=== PATIENT | female | born 1950 | race African-American/Black ===

== ENCOUNTER 2018-03-11 06:41 | Day surgery (SDC) | payer OTHER ==
[~2018-03-11 06:41] MED LIST: NA CHLORIDE 0.9% 500 ML ONE
[2018-03-11] MEDS ORDERED: LIDOCAINE 1% 20 ML MDV ONE (07:29)
[2018-03-11] MEDS ORDERED: HEPA 1000U/500MLS 2,000 UNIT/1,000 ML BAG IV ONE (07:29)
[2018-03-11] MEDS ORDERED: HEPARIN 5000 UNIT/ML 1 ML VIAL ONE (07:42)
[2018-03-11] MEDS ORDERED: MIDAZOLAM HCL 2 MG/2 ML INJ ONE (07:42)
[2018-03-11] MEDS ORDERED: FENTANYL CITR 100 MCG/2 ML ONE (07:43)
[2018-03-11] MEDS ORDERED: NA CHLORIDE 0.9% 0 ML ONE (07:43)
[2018-03-11] MEDS ORDERED: ATROPINE SULF 1 MG/10 ML SYR IV ONE (07:43)
[2018-03-11] MEDS ORDERED: NITROGLYCERIN 100 MCG/ML SYR (for cath lab use only) IV ONE (07:43)
[2018-03-11] MEDS ORDERED: NICARDIPINE HCL 25 MG/10 ML IV ONE (07:43)
[2018-03-11] MEDS ORDERED: NITROGLYCERIN/D5W 25 MG/250 ML BTL IV ONE (07:43)
[2018-03-11 07:57] LABS: Protime INR 1.05
[2018-03-11 08:01] LABS: Absolute Lymphocytes (CBC) 2.2 K/uL (0.7-4.9); Absolute Monocytes 0.7 K/uL (0.1-1.3); Absolute Neutrophil 1.5 K/uL (1.8-8.0); Eosinophils % 2.3 % (0-4.4); Lymphocytes % 48.5 % (15.3-44.8); MCH 26.1 pg (27.0-35.0); MCV 80.2 fL (80-100); Monocytes % 14.3 % (3.3-12.3); RBC Red Blood Cell Count 5.73 M/uL (3.86-4.86)
[2018-03-11 08:31] LABS: Blood Morphology Comment NOT SEEN (NOT SEEN); Platelet Estimate ADEQ
--- NOTE | 2018-03-11 19:12 | OP ---
Surgeon: John Lynn MD Procedures: Left heart catheterization and coronary left ventricular angiography. Findings: The patient has perfectly normal coronary arteries. Her ejection fraction is hyperdynamic , more than 80% ejection fraction. Left ventricular end-diastolic pressure was elevated. There was an atrial kick up to 30 mmHg. End-diastolic pressure before the atrial kick was about 15 and our jazmin n is to give her Cardizem to treat hypertrophic cardiomyopathy without gradient. Procedure In Detail: The patient was brought to the cardiac laborer hoisting in a fasting state. She had gi tasia informed consent, prepared and draped in the usual sterile fashion. Right radial approach was us ed. She was sedated with Versed and fentanyl. Lidocaine 1% was used to anesthetize the skin over th e right radial artery. The artery was entered using a 21-gauge needle. A 0.021 inch diameter guidew michael was used to cannulate the artery and we used a modified Seldinger technique to place a 6-Sammarinese T erumo radial artery sheath and was flushed and she was given a radial cocktail consisting of nicardip ine, heparin, and nitroglycerin. We used a TIG catheter, 6-Sammarinese guide into place using fluoroscopy , and a eMagin Glidewire with a short radius J-tip and we were able to use this catheter to angiogram both coronary arteries and the left ventricle. At the end of the procedure, catheters were removed over a J-wire. The wire was removed. The sheath was flushed and removed and arteriotomy closed with a TR band. Complications: From the procedure, none. Estimated Blood Loss: 5 cc. Belt Lacer: Dorcas Covington. Final Diagnosis: Hypertrophic cardiomyopathy without a gradient causing the patient's chest pain. IBETH/MARIA LUISA Voice ID: [id number] Report ID: [id number]
== END 2018-03-11 10:18 | disposition home or self-care (01) ==
LOC: CCL 06:41
PROVIDERS: ATTEND Internal Medicine
DX: I42.2 Other hypertrophic cardiomyopathy (principal); I10 Essential (primary) hypertension; E11.9 Type 2 diabetes mellitus without complications; F17.210 Nicotine dependence, cigarettes, uncomplicated
CPT/HCPCS: 36415; 82962; 85025; 85610; 85730; 93458; C1893; J1644; J2250; J3010; J0583

== ENCOUNTER 2018-11-25 11:05 | Emergency (ER) | payer OTHER ==
--- NOTE | 2018-11-25 12:19 | RAD REPORT ---
EXAM DESCRIPTION: Sergey Jackson (2 Views)11/25/2018 12:10 pm CLINICAL HISTORY: Cough COMPARISON: 2017 FINDINGS: The lungs appear clear of acute infiltrate. The heart is normal size IMPRESSION: No acute abnormalities displayed
--- NOTE | 2018-11-25 12:51 | EKG ---
Test Date: 2018-11-25 Test Time: 11:18:42 Clinical Social Worker: NATI MEASUREMENT RESULTS: Intervals: Rate: 58 KS: 158 QRSD: 92 QT: 420 QTc: 412 Almond: P: 75 KS: 158 QRS: 57 T: 65 INTERPRETIVE STATEMENTS: Sinus bradycardia Incomplete right bundle branch block Septal infarct, age undetermined Abnormal ECG Compared to ECG 10/03/2016 19:37:02 Incomplete right bundle-branch block now present Myocardial infarct finding now present Sinus rhythm no longer present ST (T wave) deviation no longer present Possible ischemia no longer present Electronically Signed On 11-25-18 12:50:46 [employer] by John Lynn
[2018-11-25 13:03] LABS: Absolute Lymphocytes (CBC) 2.1 K/uL (0.7-4.9); Absolute Monocytes 0.8 K/uL (0.1-1.3); Absolute Neutrophil 2.3 K/uL (1.8-8.0); Eosinophils % 8.6 % (0-4.4); Hematocrit 43.1 % (36.0-45.0); Lymphocytes % 37.2 % (15.3-44.8); MPV 9.5 fL (7.6-11.3); Monocytes % 13.1 % (3.3-12.3)
[2018-11-25 13:30] LABS: BUN Blood Urea Nitrogen 15 mg/dL (7-18); Bicarbonate 27 mmol/L (21-32); Glucose Level 144 mg/dL (74-106); Sodium Level 141 mmol/L (136-145); Troponin (Emerg Dept Use Only) < 0.02 ng/mL (0.0-0.045)
[2018-11-25 14:07] LABS: Urine Blood TRACE (NEG); Urine Glucose TRACE (NEG); Urine Protein NEGATIVE (NEG); Urine Specific Gravity 1.015 (1.005-1.030); Urine pH 5.5 (5.0-7.0)
--- NOTE | 2018-11-25 15:10 | ER ---
Nurse's Notes [facility] Emergency Department Name: Dinora Brooks Age: 68 yrs Sex: Female : 1950 Arrival Date: 11/25/2018 Time: 11:07 Bed 8 Private MD: John Stuart Diagnosis: Chest pain, unspecified Presentation: 11/25 11:14 Presenting complaint: Patient states: mid-sternal chest pain that began 1 week ago. Pt aa5 reports SOB. Denies N/V. Transition of care: patient was not received from another setting of care. Onset of symptoms was November 2018. Risk Assessment: Do you want to hurt yourself or someone else? Patient reports no desire to harm self or others. Initial Sepsis Screen: Does the patient meet any 2 criteria? No. Patient's initial sepsis screen is negative. Does the patient have a suspected source of infection? No. Patient's initial sepsis screen is negative. Care prior to arrival: None. 11:14 Method Of Arrival: Ambulatory aa5 11:14 Acuity: JOSE 3 aa5 Triage Assessment: 15:11 General: Appears in no apparent distress. Behavior is calm, cooperative. iw Historical: - Allergies: 11:15 NKDA; aa5 - PMHx: 11:15 Diabetes - NIDDM; Hypertension; Lupus; aa5 - PSHx: 11:15 partial hysterectomy; aa5 - Immunization history:: Adult Immunizations up to date. - Social history:: Smoking status: Patient/guardian denies using tobacco. - Ebola Screening: : No symptoms or risks identified at this time. - Family history:: not pertinent. - Hospitalizations: : No recent hospitalization is reported. Screenin:56 Abuse screen: Denies threats or abuse. Denies injuries from another. Nutritional iw screening: No deficits noted. Tuberculosis screening: No symptoms or risk factors identified. Fall Risk None identified. Assessment: 13:56 Reassessment: Patient appears in no apparent distress at this time. Patient and/or iw family updated on plan of care and expected duration. Pain level reassessed. Patient is alert, oriented x 3, equal unlabored respirations, skin warm/dry/pink. Pain: Complains of pain in anterior aspect of left upper chest Pain does not radiate. Pain began gradually, Is intermittent, lasting a few minutes. Cardiovascular: Patient's skin is warm and dry. 14:20 Reassessment: Patient appears in no apparent distress at this time. Patient and/or sg family updated on plan of care and expected duration. Pain level reassessed. Patient is alert, oriented x 3, equal unlabored respirations, skin warm/dry/pink. requesting to eat, pt denies n/v at this time, pt given a turkey and cheese sandwich, tolerating PO at this time Patient denies pain at this time. 14:54 Reassessment: Patient appears in no apparent distress at this time. Patient and/or sg family updated on plan of care and expected duration. Pain level reassessed. Patient is alert, oriented x 3, equal unlabored respirations, skin warm/dry/pink. Patient denies pain at this time. Patient states feeling better. pt at nurses station requesting to speak with ERP and be discharged to home, awaiting dispo orders at this time, will continue to monitor. Vital Signs: 11:15 BP 155 / 71; Pulse 74; Resp 21 S; Temp 97.4(TE); Pulse Ox 97% on R/A; Weight 88.9 kg aa5 (R); Height 5 ft. 6 in. (167.64 cm) (R); Pain 0/10; 13:55 BP 161 / 67; Pulse 55; Resp 16 S; Pulse Ox 98% on R/A; Pain 4/10; iw 14:55 BP 142 / 70; Pulse 60; Resp 17; Pulse Ox 97% on R/A; Pain 0/10; sg 11:15 Body Mass Index 31.63 (88.90 kg, 167.64 cm) aa5 ED Course: 11:07 Patient arrived in ED. as 11:07 John Stuart MD is Private Physician. as 11:14 Arm band placed on. aa5 11:15 Triage completed. aa5 11:58 Aly Frias MD is Attending Physician. rn 12:00 Patient has correct armband on for positive identification. traffic monitor specialist on. iw 12:07 X-ray completed. Patient tolerated procedure well. Patient moved to radiology via jb2 wheelchair. Patient moved back from radiology. 12:09 Chest Pa And Lat (2 Views) XRAY In Process Unspecified. EDMS 12:12 Saloni Phillip, JOHNATHAN is Primary Nurse. iw 12:25 EKG done, by claim technician. reviewed by Aly Frias MD. sm3 15:09 John Lynn MD is Referral Physician. rn 15:10 No provider procedures requiring assistance completed. IV discontinued, intact, iw bleeding controlled, No redness/swelling at site. Pressure dressing applied. Patient maintains SpO2 saturation greater than 95% on room air. Administered Medications: No medications were administered Outcome: 15:10 Discharge ordered by . rn 15:10 Discharged to home ambulatory. iw 15:10 Condition: good 15:10 Discharge instructions given to patient, Instructed on discharge instructions, Demonstrated understanding of instructions, follow-up care. 15:15 Patient left the ED. iw Signatures: Dispatcher [employer] EDMS Diony Pisano, RN RN Cuong Lin Amelia as Williams, Irene RN RN Aly Frias MD MD rn Calderon, Audri, RN RN aa5 Christine Burch sm3
--- NOTE | 2018-11-25 15:10 | EDPHYS ---
Physician Documentation [facility] Name: Dinora Brooks Age: 68 yrs Sex: Female : 1950 Arrival Date: 11/25/2018 Time: 11:07 Bed 8 Private MD: John Stuart ED Physician Aly Frias HPI: 11/25 12:37 This 68 yrs old Black Female presents to ER via Ambulatory with complaints of Chest rn Pain. 12:43 The patient or guardian reports chest pain that is located primarily in the anterior rn aspect of left upper chest. Onset: 1 week(s) ago. The pain does not radiate. Associated signs and symptoms: Pertinent positives: None. Associated signs and symptoms: Pertinent negatives: shortness of breath, syncope. The chest pain is described as sharp. Duration: The patient or guardian reports multiple episodes, that are intermittent. Modifying factors: The symptoms are alleviated by nothing. the symptoms are aggravated by nothing. Severity of pain: At its worst the pain was mild in the emergency department the pain is unchanged. The patient has experienced similar episodes in the past. Reports left sided chest pain, intermittent, lasts for seconds, worse with movement and moving left arm, no radiation, no vomiting/diarrhea, reports has seen Dr. Lynn a few times for chest pain, told didn't need catheterization. Last seen 2 months ago. . Historical: - Allergies: 11:15 NKDA; aa5 - PMHx: 11:15 Diabetes - NIDDM; Hypertension; Lupus; aa5 - PSHx: 11:15 partial hysterectomy; aa5 - Immunization history:: Adult Immunizations up to date. - Social history:: Smoking status: Patient/guardian denies using tobacco. - Ebola Screening: : No symptoms or risks identified at this time. - Family history:: not pertinent. - Hospitalizations: : No recent hospitalization is reported. ROS: 12:43 Constitutional: Negative for fever, chills, and weight loss, Eyes: Negative for injury, rn pain, redness, and discharge, Neck: Negative for injury, pain, and swelling, Cardiovascular: Negative for palpitations, and edema, Respiratory: Negative for shortness of breath, cough, wheezing, and pleuritic chest pain, Abdomen/GI: Negative for abdominal pain, nausea, vomiting, diarrhea, and constipation, MS/Extremity: Negative for injury and deformity, Skin: Negative for injury, rash, and discoloration, Neuro: Negative for headache, weakness, numbness, tingling, and seizure. Exam: 12:43 Constitutional: This is a well developed, well nourished patient who is awake, alert, rn and in no acute distress. Head/Face: Normocephalic, atraumatic. Cardiovascular: Regular rate and rhythm with a normal S1 and S2. No gallops, murmurs, or rubs. No JVD. No pulse deficits. Respiratory: Lungs have equal breath sounds bilaterally, clear to auscultation. No increased work of breathing, no retractions or nasal flaring. Abdomen/GI: soft, non-tender Skin: Warm, dry with normal turgor. Normal color with no rashes, no lesions, and no evidence of cellulitis. MS/ Extremity: Pulses equal, no cyanosis. Neurovascular intact. Full, normal range of motion. Equal circumference. Neuro: Awake and alert, GCS 15, oriented to person, place, time, and situation. Cranial nerves II-XII grossly intact. Motor strength 5/5 in all extremities. Sensory grossly intact. Cerebellar exam normal. Normal gait. Vital Signs: 11:15 BP 155 / 71; Pulse 74; Resp 21 S; Temp 97.4(TE); Pulse Ox 97% on R/A; Weight 88.9 kg aa5 (R); Height 5 ft. 6 in. (167.64 cm) (R); Pain 0/10; 13:55 BP 161 / 67; Pulse 55; Resp 16 S; Pulse Ox 98% on R/A; Pain 4/10; iw 14:55 BP 142 / 70; Pulse 60; Resp 17; Pulse Ox 97% on R/A; Pain 0/10; sg 11:15 Body Mass Index 31.63 (88.90 kg, 167.64 cm) aa5 MDM: 11:58 Patient medically screened. rn 15:07 Differential diagnosis: abnormal EKG, acute myocardial infarction, acute pericarditis, rn anxiety, chest wall pain, costochondritis, esophagitis, gastritis, gastroesophageal reflux disease (GERD), pericarditis, pleurisy, pneumothorax. Data reviewed: vital signs, nurses notes, lab test result(s), EKG, radiologic studies, and as a result, I will discharge patient. Special discussion: Based on the patient's history, exam, and Dx evaluation, there is no indication for emergent intervention or inpatient Tx. It is understood by the patient/guardian that if the Sx's persist or worsen they need to return immediately for re-evaluation. I discussed with the patient/guardian in detail that at this point there is no indication for admission to the hospital. It is understood, however, that if the symptoms persist or worsen the patient needs to return immediately for re-evaluation. ED course: Pt eager to leave, she states does not believe this is her heart, no longer having pain, no ischemia on ECG, trop neg, cxr negative, may be sequelae of lupus, will dc home to f/u with cardiology, reports will call for appt upon discharge, return precautions given and understood. . 11/25 12:20 Order name: CBC with Diff; Complete Time: 13:10 rn 11/25 12:20 Order name: Basic Metabolic Panel; Complete Time: 13:34 rn 11/25 11:17 Order name: Chest Pa And Lat (2 Views) XRAY; Complete Time: 12:22 snw 11/25 11:19 Order name: EKG; Complete Time: 11:20 ss 11/25 12:20 Order name: Troponin (emerg Dept Use Only); Complete Time: 13:34 rn 11/25 13:57 Order name: Urine Dipstick--Ancillary (enter results); Complete Time: 14:17 eb 11/25 11:19 Order name: EKG - Nurse/Tech; Complete Time: 11:19 ss 11/25 12:20 Order name: IV Start; Complete Time: 13:02 rn Administered Medications: No medications were administered Disposition: 11/25/18 15:10 Discharged to Home. Impression: Chest pain, unspecified. - Condition is Stable. - Discharge Instructions: Nonspecific Chest Pain. - Medication Reconciliation Form, Thank You Letter, Antibiotic Education, Prescription Opioid Use form. - Follow up: John Lynn MD; When: As needed; Reason: Recheck today's complaints, Re-evaluation by your physician. - Problem is new. - Symptoms have improved. Signatures: Dispatcher [employer] EDSaloni Sandoval RN RN iw Aly Frias MD MD rn Calderon, Audri, RN RN aa5 Smirch, Aylin, RN RN ss Corrections: (The following items were deleted from the chart) 15:15 15:10 11/25/2018 15:10 Discharged to Home. Impression: Chest pain, unspecified. iw Condition is Stable. Forms are Medication Reconciliation Form, Thank You Letter, Antibiotic Education, Prescription Opioid Use. Follow up: John Lynn; When: As needed; Reason: Recheck today's complaints, Re-evaluation by your physician. Problem is new. Symptoms have improved. rn
== END 2018-11-25 15:15 | disposition home or self-care (01) ==
LOC: ER 11:05
DX: I45.10 Unspecified right bundle-branch block (principal); R07.9 Chest pain, unspecified; R94.31 Abnormal electrocardiogram [ECG] [EKG]
CPT/HCPCS: 36415; 71046; 80048; 81003; 84484; 85025; 93005; 99284

== ENCOUNTER 2020-01-09 09:18 | Emergency (ER) | payer OTHER ==
--- NOTE | 2020-01-09 10:27 | EDPHYS ---
Physician Documentation [facility] Name: Dinora Brooks Age: 69 yrs Sex: Female : 1950 Arrival Date: 01/09/2020 Time: 09:19 Bed 25 Private MD: ED Physician Jarrett South HPI: 01/09 10:15 This 69 yrs old Black Female presents to ER via Ambulatory with complaints of Chest pm1 Pain. 10:15 The patient or guardian reports flu symptoms. Onset: The symptoms/episode pm1 began/occurred 3 day(s) ago. Severity of symptoms: in the emergency department the symptoms are unchanged. Modifying factors: The symptoms are alleviated by nothing, the symptoms are aggravated by nothing. Associated signs and symptoms: Pertinent positives: Nonproductive cough, right and left anterior lower chest pain with coughing only. headache, subjective fever, body aches, and sore throat for 3 days. + nausea/ - diarrhea/ - vomiting. The patient has not recently seen a physician, the patient's primary care provider is Dr. Stuart. Historical: - Allergies: 09:41 NKDA; hb - Immunization history:: Adult Immunizations up to date. - Coronavirus screen:: The patient has NOT traveled to [place] in the past 14 days. - Ebola Screening: : Patient denies travel to an Ebola-affected area in the 21 days before illness onset. ROS: 10:15 Eyes: Negative for injury, pain, redness, and discharge. pm1 10:15 Neck: Negative for injury, pain, and swelling. 10:15 Back: Negative for injury and pain, : Negative for injury, bleeding, discharge, and swelling, MS/Extremity: Negative for injury and deformity, Skin: Negative for injury, rash, and discoloration, Neuro: Negative for weakness, numbness, tingling, and seizure, Positive headache 10:15 Constitutional: Positive for body aches, fever. 10:15 ENT: Positive for rhinorrhea, sore throat, Negative for ear pain. 10:15 Cardiovascular: Positive for chest pain, with cough, Negative for edema, palpitations. 10:15 Respiratory: Positive for cough, with no reported sputum, Negative for shortness of breath, sputum production, wheezing. 10:15 Abdomen/GI: Positive for nausea, Negative for abdominal pain, vomiting, diarrhea, constipation. Exam: 10:15 Constitutional: This is a well developed, well nourished patient who is awake, alert, pm1 and in no acute distress. Head/Face: Normocephalic, atraumatic. Eyes: Pupils equal round and reactive to light, extra-ocular motions intact. Lids and lashes normal. Conjunctiva and sclera are non-icteric and not injected. Cornea within normal limits. Periorbital areas with no swelling, redness, or edema. ENT: Nares patent. No nasal discharge, no septal abnormalities noted. Tympanic membranes are normal and external auditory canals are clear. Oropharynx with no redness, swelling, or masses, exudates, or evidence of obstruction, uvula midline. Mucous membranes moist. Neck: Trachea midline, no thyromegaly or masses palpated, and no cervical lymphadenopathy. Supple, full range of motion without nuchal rigidity, or vertebral point tenderness. No Meningismus. 10:15 Cardiovascular: Regular rate and rhythm with a normal S1 and S2. No gallops, murmurs, or rubs. Normal PMI, no JVD. No pulse deficits. Respiratory: Lungs have equal breath sounds bilaterally, clear to auscultation and percussion. No rales, rhonchi or wheezes noted. No increased work of breathing, no retractions or nasal flaring. Abdomen/GI: Soft, non-tender, with normal bowel sounds. No distension or tympany. No guarding or rebound. No evidence of tenderness throughout. Back: No spinal tenderness. No costovertebral tenderness. Full range of motion. Skin: Warm, dry with normal turgor. Normal color with no rashes, no lesions, and no evidence of cellulitis. MS/ Extremity: Pulses equal, no cyanosis. Neurovascular intact. Full, normal range of motion. 10:15 Chest/axilla: Inspection: normal, Palpation: tenderness, that is mild, of the anterior ribs below right and left breasts, that totally reproduces the patient's complaints. 10:15 Neuro: Orientation: is normal, Motor: is normal, moves all fours, Gait: is steady, at a normal pace, without difficulty. Vital Signs: 09:26 BP 189 / 89; Pulse 70; Resp 16; Temp 98.4; Pulse Ox 96% ; Weight 86.18 kg; Height 5 ft. hb 6 in. (167.64 cm); Pain 6/10; 09:26 Body Mass Index 30.67 (86.18 kg, 167.64 cm) hb MDM: 10:15 Patient medically screened. pm1 10:25 Data reviewed: vital signs. Data interpreted: Pulse oximetry: on room air is 96 %. pm1 Interpretation: normal. Counseling: I had a detailed discussion with the patient and/or guardian regarding: the historical points, exam findings, and any diagnostic results supporting the discharge/admit diagnosis, lab results, the need for outpatient follow up, to return to the emergency department if symptoms worsen or persist or if there are any questions or concerns that arise at home. 01/09 09:40 Order name: Flu; Complete Time: 10:12 hb 01/09 09:40 Order name: Strep; Complete Time: 10:12 hb 01/09 09:40 Order name: EKG; Complete Time: 09:41 hb 01/09 09:40 Order name: EKG - Nurse/Tech; Complete Time: 09:40 01/09 10:01 Order name: Throat Culture EDMS Administered Medications: No medications were administered Disposition: 12:59 Co-signature as Attending Physician, Jarrett South MD I agree with the assessment and kdr plan of care. Disposition: 01/09/20 10:26 Discharged to Home. Impression: Influenza due to identified novel influenza A virus. - Condition is Stable. - Discharge Instructions: Influenza, Adult. - Prescriptions for Guaifenesin AC 10- 100 mg/5 mL Oral Liquid - take 10 milliliter by ORAL route every 4 hours As needed; 240 milliliter. - Work release form, Medication Reconciliation Form, Thank You Letter, Antibiotic Education, Prescription Opioid Use form. - Follow up: Emergency Department; When: As needed; Reason: Worsening of condition. Follow up: Private Physician; When: 2 - 3 days; Reason: Recheck today's complaints, Continuance of care, Re-evaluation by your physician. - Problem is new. - Symptoms have improved. Signatures: Dispatcher [employer] EDMS Faiza Paige RN RN aj1 Jarrett South MD MD kdr Marinas, Patrick, LEAD ANDROID DEVELOPER LEAD ANDROID DEVELOPER pm1 Nena Stanton RN RN Corrections: (The following items were deleted from the chart) 10:41 10:26 01/09/2020 10:26 Discharged to Home. Impression: Influenza due to identified aj1 novel influenza A virus. Condition is Stable. Forms are Medication Reconciliation Form, Thank You Letter, Antibiotic Education, Prescription Opioid Use. Follow up: Emergency Department; When: As needed; Reason: Worsening of condition. Follow up: Private Physician; When: 2 - 3 days; Reason: Recheck today's complaints, Continuance of care, Re-evaluation by your physician. Problem is new. Symptoms have improved. pm1 11:10 10:15 Back: Negative for injury and pain, : Negative for injury, bleeding, discharge, pm1 and swelling, MS/Extremity: Negative for injury and deformity, Skin: Negative for injury, rash, and discoloration, Neuro: Negative for headache, weakness, numbness, tingling, and seizure, pm1
--- NOTE | 2020-01-09 10:27 | ER ---
Nurse's Notes [facility] Name: Dinora Brooks Age: 69 yrs Sex: Female : 1950 Arrival Date: 01/09/2020 Time: 09:19 Bed 25 Private MD: Diagnosis: Influenza due to identified novel influenza A virus Presentation: 01/09 09:25 Presenting complaint: Nonproductive cough, substernal chest pain, pain with cough, hb headache, subjective fever, body aches, nausea, and sore throat x 3 days. 09:25 Method Of Arrival: Ambulatory hb 09:25 Transition of care: patient was not received from another setting of care. Onset of hb symptoms was January 07, 2020. Risk Assessment: Do you want to hurt yourself or someone else? Patient reports no desire to harm self or others. Initial Sepsis Screen: Does the patient meet any 2 criteria? No. Patient's initial sepsis screen is negative. Does the patient have a suspected source of infection? No. Patient's initial sepsis screen is negative. Care prior to arrival: None. 09:25 Acuity: JOSE 3 hb Historical: - Allergies: 09:41 NKDA; hb - Immunization history:: Adult Immunizations up to date. - Coronavirus screen:: The patient has NOT traveled to [place] in the past 14 days. - Ebola Screening: : Patient denies travel to an Ebola-affected area in the 21 days before illness onset. Screenin:34 Abuse screen: Denies threats or abuse. Denies injuries from another. Nutritional aj1 screening: No deficits noted. Tuberculosis screening: No symptoms or risk factors identified. Fall Risk None identified. Assessment: 10:34 General: Appears in no apparent distress. comfortable, Behavior is calm, cooperative, aj1 appropriate for age. Pain: Complains of pain in chest Pain does not radiate. Quality of pain is described as aching, Aggravated by cough, deep breathing. Neuro: Level of Consciousness is awake, alert, obeys commands. Cardiovascular: Reports chest pain, Patient's skin is warm and dry. Respiratory: Reports cough that is hacking, persistent Airway is patent Respiratory effort is even, unlabored, Respiratory pattern is regular, symmetrical. GI: No signs and/or symptoms were reported involving the gastrointestinal system. : No signs and/or symptoms were reported regarding the genitourinary system. EENT:. Derm: No signs and/or symptoms reported regarding the dermatologic system. Skin is pink, warm \T\ dry. normal. Musculoskeletal: No signs and/or symptoms reported regarding the musculoskeletal system. Circulation, motion, and sensation intact. Vital Signs: 09: BP 189 / 89; Pulse 70; Resp 16; Temp 98.4; Pulse Ox 96% ; Weight 86.18 kg; Height 5 ft. hb 6 in. (167.64 cm); Pain 6/10; 09: Body Mass Index 30.67 (86.18 kg, 167.64 cm) hb ED Course: 09:19 Patient arrived in ED. as 09:30 Arm band placed on. EKG completed in triage. Results shown to MD. hb 09:39 Triage completed. hb 10:12 Hesham Trinh NP is PHCP. pm1 10:12 Jarrett South MD is Attending Physician. pm1 10:18 Faiza Paige RN is Primary Nurse. aj1 10:20 EKG done, by ED staff, reviewed by Jarrett South MD. tc 10:34 Patient has correct armband on for positive identification. aj1 10:34 No provider procedures requiring assistance completed. Patient maintains SpO2 aj1 saturation greater than 95% on room air. 10:40 Patient did not have IV access during this emergency room visit. aj1 Administered Medications: No medications were administered Outcome: : Discharge ordered by MD. pm1 10:40 Discharged to home ambulatory. aj1 10:40 Condition: good 10:40 Discharge instructions given to patient, Instructed on discharge instructions, follow up and referral plans. no drinking with medication, no driving heavy equipment, medication usage, Demonstrated understanding of instructions, follow-up care, medications, Prescriptions given X 1. 10:41 Patient left the ED. aj1 Signatures: Faiza Paige, RN RN aj1 Angelica Drake Tiffany, dynamometer tuner EKG Ttc Hesham Trinh NP DISH MACHINE OPERATOR pm1 Nena Stanton, RN RN hb
--- NOTE | 2020-01-09 11:30 | EKG ---
Test Date: 2020-01-09 Test Time: 09:28:09 Lockstitch Coat Joiner: MARY KATE MEASUREMENT RESULTS: Intervals: Rate: 68 RI: 146 QRSD: 94 QT: 394 QTc: 418 [place]: P: 76 RI: 146 QRS: 5 T: 70 INTERPRETIVE STATEMENTS: Normal sinus rhythm Incomplete right bundle branch block Nonspecific ST and T wave abnormality Abnormal ECG Compared to ECG 11/25/2018 11:18:42 ST (T wave) deviation now present Sinus bradycardia no longer present Myocardial infarct finding no longer present Electronically Signed On 01-09-20 11:30:22 ASSISTANT EXECUTIVE HOUSEKEEPER by Dieter Finch
== END 2020-01-09 10:41 | disposition home or self-care (01) ==
LOC: ER 09:18
DX: J09.X9 Influenza due to identified novel influenza A virus with other manifestations (principal)
CPT/HCPCS: 87070; 87081; 87804; 93005; 99284

== ENCOUNTER 2020-08-16 10:39 | Emergency (ER) | payer OTHER ==
--- OUTSIDE RECORDS SUMMARY | 2020-08-16 10:48 | XMS REPORT | Continuity of Care Document ---
:1950 Author Organization [employer] Care Team Providers Name Role Phone [email or web address] Unavailable Un available Problems Problem Status Onset Classification Date Comments Sourc e Date Reported Type 2 diabetes Active Diagnosis 05/21/2020 [facility] mellitus without of Jennifer complication, without long-term current use of insulin Screening for Active Problem 05/21/2020 [facility] osteoporosis of Jennifer Chest pain Active Problem 05/21/[address] of Jennifer Benign essential Active Diagnosis 05/21/2020 [facility] hypertension of Jennifer Discoid lupus Active Diagnosis 05/21/2020 [facility] erythematosus of Jennifer Gastroesophageal Active Problem 05/21/2020 [facility] reflux disease of [facility] u without esophagitis continuous churn buttermaker current Active Problem 05/21/2020 [facility] use of opiate of Jennifer analgesic Pain in joints of Active Problem 05/21/2020 [facility] right hand of Jennifer Osteopenia Active Diagnosis 05/21/[address] of Jennifer Pain in hand Active Problem 05/21/2020 [facility] Jennifer Paresthesia Active Problem 05/21/[address] [facility] of Jennifer Other detention Active Problem 05/21/2020 [facility] (current) drug of Ho u therapy Encounter for Active Problem 05/21/2020 [facility] long-term (current) of Jennifer use of other medications Muscle spasm Active Diagnosis 01/22/2020 [facility] Jennifer Vitamin D deficiency Active Diagnosis 05/21/2020 [facility] Jennifer Myalgia, unspecified Active Problem 05/21/2020 [facility] site of Jennifer Raised antibody Active Diagnosis 05/21/2020 [facility] titer of Jennifer Encounter for Active Problem 05/21/2020 [facility] therapeutic drug of Jennifer level monitoring Encntr long-term Active Problem 05/21/2020 [facility] NSAID use of Jennifer Osteoarthritis Active Diagnosis 05/21/2020 [facility] of Jennifer Encounter for Active Diagnosis 05/21/2020 [facility] immunization of Jennifer Medications Medication Details Route Status Patient Ordering Order Source Instructions Provider Date Tizanidine HCl 1 tablet Orally Active 2 MG Orally Mateo Rheu m as needed twice a day 019 Ctr of Jeninfer Ergocalciferol 1 capsule Orally Active 1.25 MG (47905 Vo [facility] [place]) Orally once 019 Ctr of a week Jennifer Naproxen 1 tablet Orally Active 500 MG Orally Mateo Rheum with food every 12 hrs 019 Ctr of or milk as Jennifer needed Tramadol HCl 1 tablet Orally Active 50 MG Orally Vo Rheum as needed every day (qd) 019 Ctr of Jennifer Gabapentin 1 capsule Orally Active 100 MG Orally Vo Rheum Twice a day as 019 Ctr of needed Jennifer Calcium + D 1 tablet Orally Active 315-200 MG-UNIT Vo Rhe um with meals Orally Twice a 017 Ctr of day Jennifer Calcium + D 2 tablet Orally Active 500-1000-40 Sandy Rheum with meals MG-UNT-MCG 017 Ctr of Orally Twice a Jennifer day Ramipril 1 tablet Orally Active 10 MG Orally Sandy Rhe[facility] Once a day Ctr of Jennifer Metformin HCl 1 tablet Orally Active 500 MG Orally Sandy Rhe um with meals Once a day Ctr of Jennifer Plavix not NA Active Sandy Rheum defined Ctr of Jennifer Cartia XT 1 capsule Orally Active 300 MG Orally Sandy Rheum Once a day Ctr of Jennifer Vitamin B-12 not NA Active Sandy Rheum defined Ctr of Jennifer Aleve 1 tablet Orally Active 220 MG Orally Vo Rheum as needed every 12 hrs Ctr of Jennifer Aspirin 1 tablet Orally Active 81 MG Orally Sandy [facility] Once a day Ctr of Jennifer GlipiZIDE XL 1 tablet Orally Active 5 MG Orally Sandy [facility] Once a day C[facility] of Jennifer Nexium 1 capsule Orally Active 10 MG Orally Sandy Rhe[facility] Once a day C[facility] of Jennifer Januvia 1 tablet Orally Active 100 MG Orally Sandy Rhe[facility] Once a day Ctr of Jennifer Tresiba FlexTouch not NA Active Sandy Rhe[facility] defined Ctr of Jennifer Allergies, Adverse Reactions, Alerts Substance Category Reaction Severity Reaction Status Date Comments S ource type Reported Hydroxychloroquin Adverse bad Adverse Active Rheum e Sulfate Reaction dreams Reaction 0 Ctr of Jennifer Immunizations No Data Provided for This Section Results No Data Provided for This Section Pathology Reports No Data Provided for This Section Diagnostic Reports No Data Provided for This Section Consultation Notes No Data Provided for This Section Discharge Summaries No Data Provided for This Section History and Physicals No Data Provided for This Section Vital Signs Vital Sign Value Date Comments Source Weight 185 05/20/2020 [facility] Height 56 05/20/2020 [facility] Heart Rate 64 05/20/2020 [facility] Diastolic (mm Hg) 90 05/20/2020 [facility] Jennifer Systolic (mm Hg) 174 05/20/2020 [facility] o f Jennifer Weight 186 01/20/2020 [facility] Height 56 01/20/2020 [facility] Heart Rate 56 01/20/2020 [facility] Diastolic (mm Hg) 83 01/20/2020 [facility] Jennifer Systolic (mm Hg) 147 01/20/2020 [facility] o f Jennifer Weight 185 10/02/2019 [facility] Height 56 10/02/2019 [facility] Heart Rate 75 10/02/2019 [facility] Diastolic (mm Hg) 73 10/02/2019 [facility] Jennifer Systolic (mm Hg) 153 10/02/2019 [facility] o f Jennifer Weight 192 06/03/2019 [facility] Height 56 06/03/2019 [facility] Heart Rate 58 06/03/2019 [facility] Diastolic (mm Hg) 89 06/03/2019 [facility] Jennifer Systolic (mm Hg) 187 06/03/2019 [facility] o f Jennifer Encounters No Data Provided for This Section Procedures No Data Provided for This Section Assessment and Plan No Data Provided for This Section Plan of Care No Data Provided for This Section Social History No Data Provided for This Section Family History No Data Provided for This Section Advance Directives No Data Provided for This Section Functional Status No Data Provided for This Section
--- OUTSIDE RECORDS SUMMARY | 2020-08-16 10:49 | XMS REPORT ---
:1950 Author Organization [employer] Care Team Providers Name Role Phone Fifi Delgado Provider Role Unavailable Allergies, Adverse Reactions, Alerts Substance Reaction Event Type Hydroxychloroquine Sulfate bad dreams Drug Allergy Problems Problem Type Condition Code Onset Dates Condition Statu s Assessment Osteoarthritis M19.90 Active Assessment Encounter for immunization Z23 A ctive Assessment Benign essential hypertension I10 Active Assessment Type 2 diabetes mellitus without E11.9 Active complication, without long-term current use of insulin Problem Encounter for long-term (current) Z79.899 Active use of other medications Assessment Osteopenia M85.80 Active Problem Other rn long term care (current) drug Z79.899 Active therapy Assessment Vitamin D deficiency E55.9 Active Problem Pain in joints of right hand M25.541 Active Problem Osteopenia M85.80 Active Problem terminologist current use of opiate Z79.891 Active analgesic Problem Osteoarthritis M19.90 Active Problem Encntr long-term NSAID use Z79.1 A ctive Assessment Discoid lupus erythematosus L93.0 Active Problem Encounter for immunization Z23 A ctive Assessment Raised antibody titer R76.0 Active Problem Vitamin D deficiency E55.9 Active Problem Myalgia, unspecified site M79.10 Ac tive Problem Encounter for therapeutic drug Z51.81 Active level monitoring Problem Raised antibody titer R76.0 Active Problem Discoid lupus erythematosus L93.0 Active Problem Chest pain R07.9 Active Problem Benign essential hypertension I10 Active Problem Gastroesophageal reflux disease K21.9 Active without esophagitis Problem Paresthesia R20.2 Active Problem Pain in hand M79.643 Active Problem Screening for osteoporosis Z13.820 A ctive Problem Type 2 diabetes mellitus without E11.9 Active complication, without long-term current use of insulin Medications Medication Code Code Instructions Start End Status Dosage System Date Date GlipiZIDE XL [facility] 64428616677 5 MG Orally Active 1 t ablet Once a day Plavix [facility] [address]-41 Active not defined Calcium + D [facility] 70398860528 500-1000-40 Sep 03, Active 2 ta blet MG-UNT-MCG 2016 with meals Orally Twice a day Vitamin B-12 [facility] 25224-16736 Active not defined Ramipril [facility] 54677007968 10 MG Orally Active 1 tabl et Once a day Aspirin [facility] 69829259243 81 MG Orally Active 1 table t Once a day Metformin HCl [facility] 52568472145 500 MG Orally Active 1 tablet Once a day with meals Januvia [facility] 11430512203 100 MG Orally Active 1 tabl et Once a day Nexium [facility] 58651256253 10 MG Orally Active 1 capsu le Once a day Tresiba [facility] [address]-74 Active not FlexTouch defined Cartia XT [facility] 03521330727 300 MG Orally Active 1 ca psule Once a day Vital Signs Date/Time: May 20, 2020 BMI 41.47 Index Weight 185 lbs Height 56 in Cardiac Monitoring Heart Rate 64 /min Blood Pressure Diastolic 90 mm Hg Blood Pressure Systolic 174 mm Hg Results No Known Results Summary Purpose [employer] Submission
--- NOTE | 2020-08-16 11:19 | ER ---
Nurse's Notes [facility] Name: Dinora Brooks Age: 70 yrs Sex: Female : 1950 Arrival Date: 08/16/2020 Time: 10:42 Bed 18 Private MD: Diagnosis: Candidiasis Presentation: 08/16 10:47 Chief complaint: Patient states: rash under bilateral breast x 1 week, painful and jl7 itchy. Coronavirus screen: Client denies travel out of the [place] in the last 14 days. At this time, the client does not indicate any symptoms associated with coronavirus-19. Ebola Screen: No symptoms or risks identified at this time. Initial Sepsis Screen: Does the patient meet any 2 criteria? No. Patient's initial sepsis screen is negative. Does the patient have a suspected source of infection? No. Patient's initial sepsis screen is negative. Risk Assessment: Do you want to hurt yourself or someone else? Patient reports no desire to harm self or others. Onset of symptoms was August 09, 2020. Care prior to arrival: None. 10:47 Method Of Arrival: Ambulatory jl7 10:47 Acuity: JOSE 4 jl7 Triage Assessment: 10:49 General: Appears in no apparent distress. uncomfortable, Behavior is calm, cooperative, jl7 appropriate for age. Pain: Complains of pain in chest Pain currently is 6 out of 10 on a pain scale. Historical: - Allergies: 10:49 NKDA; jl7 - Home Meds: 10:49 Tresiba FlexTouch U-100 100 unit/mL (3 mL) subcutaneous inpn [Active]; Verapamil Oral jl7 [Active]; - PMHx: 10:49 Diabetes - NIDDM; Hypertension; Lupus; jl7 - Immunization history:: Adult Immunizations up to date. - Social history:: Smoking status: Patient/guardian denies using tobacco, the patient reports quitting approximately 3 years ago. Screenin:52 Abuse screen: Denies threats or abuse. Denies injuries from another. Nutritional bp screening: No deficits noted. Tuberculosis screening: No symptoms or risk factors identified. Fall Risk None identified. Assessment: 10:52 General: SEE TRIAGE NOTE. bp 11:24 Reassessment: PT D/C HOME AMBULATORY, DX WITH CANDIDIASIS. bp Vital Signs: 10:47 BP 196 / 80; Pulse 69; Resp 17; Temp 97.6; Pulse Ox 100% ; Weight 86.18 kg; Pain 6/10; jl7 11:24 BP 166 / 75; Pulse 75; Resp 17; Temp 97.8; Pulse Ox 100% ; bp ED Course: 10:42 Patient arrived in ED. as 10:48 Elise Mendoza FNP-C is [facility]. kb 10:48 Sal Olson MD is Attending Physician. kb 10:48 Triage completed. jl7 10:49 Arm band placed on right wrist. jl7 10:52 Matt iWnters, RN is Primary Nurse. bp 10:52 Patient has correct armband on for positive identification. Bed in low position. Call bp light in reach. Side rails up X2. 11:24 No provider procedures requiring assistance completed. Patient did not have IV access bp during this emergency room visit. Administered Medications: No medications were administered Outcome: 11:19 Discharge ordered by MD. kb 11:24 Discharged to home ambulatory. bp 11:24 Condition: stable 11:24 Discharge instructions given to patient, Instructed on discharge instructions, follow up and referral plans. medication usage, Demonstrated understanding of instructions, follow-up care, medications, Prescriptions given X 1. 11:26 Patient left the ED. bp Signatures: Elise Mendoza FNP-C FNP-Ckb Martinez, Amelia as Leal, Jahala, RN RN jlMatt Spear, RN RN bp
--- NOTE | 2020-08-16 11:20 | EDPHYS ---
Physician Documentation [facility] Name: Dinora Brooks Age: 70 yrs Sex: Female : 1950 Arrival Date: 08/16/2020 Time: 10:42 Bed 18 Private MD: GABRIEL Physician Sal Olson HPI: 08/16 11:49 This 70 yrs old Black Female presents to ER via Ambulatory with complaints of Breast kb Problem. 11:49 The patient's rash thought to be caused by an unknown cause. The rash is located on the kb left breast and right breast. The rash can be described as erythematous, macular, papular. Onset: The symptoms/episode began/occurred 1 week(s) ago. Associated signs and symptoms: Pertinent positives: itching. Severity of symptoms: At their worst the symptoms were moderate in the emergency department the symptoms are unchanged. The patient has not experienced similar symptoms in the past. The patient has not recently seen a physician. Pt reports rash beneath breasts that started a week ago. States it is getting worse and she can't get any relief from the itching. States the only thing that decreases the symptoms is putting tissue under the breasts to keep the skin from touching. Historical: - Allergies: 10:49 NKDA; jl7 - Home Meds: 10:49 Tresiba FlexTouch U-100 100 unit/mL (3 mL) subcutaneous inpn [Active]; Verapamil Oral jl7 [Active]; - PMHx: 10:49 Diabetes - NIDDM; Hypertension; Lupus; jl7 - Immunization history:: Adult Immunizations up to date. - Social history:: Smoking status: Patient/guardian denies using tobacco, the patient reports quitting approximately 3 years ago. ROS: 11:48 Constitutional: Negative for fever, chills, and weight loss, Cardiovascular: Negative kb for chest pain, palpitations, and edema, Respiratory: Negative for shortness of breath, cough, wheezing, and pleuritic chest pain, Abdomen/GI: Negative for abdominal pain, nausea, vomiting, diarrhea, and constipation, Back: Negative for injury and pain, MS/Extremity: Negative for injury and deformity, Neuro: Negative for headache, weakness, numbness, tingling, and seizure. 11:48 Skin: Positive for rash, of the right breast and left breast. Exam: 11:48 Constitutional: This is a well developed, well nourished patient who is awake, alert, kb and in no acute distress. Head/Face: Normocephalic, atraumatic. Chest/axilla: Normal chest wall appearance and motion. Nontender with no deformity. No lesions are appreciated. Cardiovascular: Regular rate and rhythm with a normal S1 and S2. No gallops, murmurs, or rubs. Normal PMI, no JVD. No pulse deficits. Respiratory: Lungs have equal breath sounds bilaterally, clear to auscultation and percussion. No rales, rhonchi or wheezes noted. No increased work of breathing, no retractions or nasal flaring. Abdomen/GI: Soft, non-tender, with normal bowel sounds. No distension or tympany. No guarding or rebound. No evidence of tenderness throughout. MS/ Extremity: Pulses equal, no cyanosis. Neurovascular intact. Full, normal range of motion. Neuro: Awake and alert, GCS 15, oriented to person, place, time, and situation. Cranial nerves II-XII grossly intact. Motor strength 5/5 in all extremities. Sensory grossly intact. Cerebellar exam normal. Normal gait. 11:48 Skin: rash a moderate rash is noted, consistent with yeast, on the left breast and right breast. Vital Signs: 10:47 BP 196 / 80; Pulse 69; Resp 17; Temp 97.6; Pulse Ox 100% ; Weight 86.18 kg; Pain 6/10; jl7 11:24 BP 166 / 75; Pulse 75; Resp 17; Temp 97.8; Pulse Ox 100% ; bp MDM: 10:51 Patient medically screened. kb 11:48 Data reviewed: vital signs, nurses notes. Data interpreted: Pulse oximetry: on room air kb is 100 %. Interpretation: normal. Counseling: I had a detailed discussion with the patient and/or guardian regarding: the historical points, exam findings, and any diagnostic results supporting the discharge/admit diagnosis, the need for outpatient follow up, a family practitioner, to return to the emergency department if symptoms worsen or persist or if there are any questions or concerns that arise at home. Administered Medications: No medications were administered Disposition: 08/16/20 11:19 Discharged to Home. Impression: Candidiasis. - Condition is Stable. - Discharge Instructions: Skin Yeast Infection. - Prescriptions for Nystatin- Triamcinolone 100,000-0.1 unit/g-% Topical Cream - apply 1 application by TOPICAL route 2 times per day; 1 tube. - Work release form, Medication Reconciliation Form, Thank You Letter, Antibiotic Education, Prescription Opioid Use form. - Follow up: Emergency Department; When: As needed; Reason: Worsening of condition. Follow up: Private Physician; When: 2 - 3 days; Reason: Recheck today's complaints, Continuance of care, Re-evaluation by your physician. Addendum: 08/17/2020 13:47 Co-signature as Attending Physician, Sal Olson MD I agree with the assessment and c albarran plan of care. Signatures: Elise Mendoza, SILVIO-C JUVENILE COURT JUDGE-Sal Castaneda MD MD cha Leal, Jahala, RN RN jl7 Matt Winters RN RN bp Corrections: (The following items were deleted from the chart) 08/16 11:26 11:19 08/16/2020 11:19 Discharged to Home. Impression: Candidiasis. Condition is bp Stable. Forms are Medication Reconciliation Form, Thank You Letter, Antibiotic Education, Prescription Opioid Use. Follow up: Emergency Department; When: As needed; Reason: Worsening of condition. Follow up: Private Physician; When: 2 - 3 days; Reason: Recheck today's complaints, Continuance of care, Re-evaluation by your physician. kb
[2020-08-16 11:36] VITALS: O2SAT 100
[2020-08-16 11:37] VITALS: BP 166/75; TEMP 97.8
== END 2020-08-16 11:26 | disposition home or self-care (01) ==
LOC: ER 10:39
DX: B37.9 Candidiasis, unspecified (principal); I10 Essential (primary) hypertension; E11.9 Type 2 diabetes mellitus without complications; Z79.4 Long term (current) use of insulin
CPT/HCPCS: 99282

== ENCOUNTER 2021-02-23 10:32 | Emergency (ER) | payer OTHER ==
--- NOTE | 2021-02-23 13:50 | RAD REPORT ---
EXAM DESCRIPTION: Sergey Single View02/23/2021 1:44 pm CLINICAL HISTORY: Cough COMPARISON: 2018 FINDINGS: The lungs appear clear of acute infiltrate. The heart is mildly enlarged IMPRESSION: No acute abnormalities displayed
[2021-02-23 14:44] LABS: SARS-COV-2 RT PCR NEGATIVE (NEGATIVE)
--- NOTE | 2021-02-23 14:58 | EDPHYS ---
Physician Documentation [facility] Name: Dinora Brooks Age: 70 yrs Sex: Female : 1950 Arrival Date: 02/23/2021 Time: 10:48 Bed 28 Private MD: John Stuart ED Physician Aly Frias HPI: 02/23 13:11 This 70 yrs old Black Female presents to ER via Ambulatory with complaints of Cough, jmm Chest Pressure. 13:11 The patient or guardian reports cough. Onset: The symptoms/episode began/occurred jmm gradually, 2 day(s) ago. Modifying factors: The symptoms are alleviated by nothing, the symptoms are aggravated by nothing. Associated signs and symptoms: Pertinent positives: sinus pressure. This is a 70 year old female with a history of dm, htn, lupus that presents to the ED with complaints of cough, chest congestion, sinus pressure beginning approx 2 days ago. Patient denies chest pain or shortness of breath. Denies fever. Denies known infectious exposure. . Historical: - Allergies: 11:26 NKDA; ca1 - PMHx: 11:26 Diabetes - NIDDM; Hypertension; Lupus; ca1 - PSHx: 11:26 Hysterectomy; ca1 - Immunization history:: Client reports receiving the 1st dose of the Covid vaccine, Pneumococcal vaccine is not up to date, Flu vaccine is up to date. - Social history:: Smoking status: Patient/guardian denies using tobacco, the patient reports quitting approximately 4 years ago. ROS: 13:11 Constitutional: Negative for fever, chills, and weight loss, Cardiovascular: Negative jmm for chest pain, palpitations, and edema. 13:11 ENT: Positive for sinus congestion, sinus pain. 13:11 Respiratory: Positive for cough. 13:11 All other systems are negative. Exam: 13:11 Constitutional: This is a well developed, well nourished patient who is awake, alert, jmm and in no acute distress. Head/Face: atraumatic. Eyes: EOMI, no conjunctival erythema appreciated ENT: Moist Mucus Membranes Neck: Trachea midline, Supple Chest/axilla: Normal chest wall appearance and motion. Cardiovascular: Regular rate and rhythm. No edema appreciated Respiratory: Normal respirations, no respiratory distress appreciated Abdomen/GI: Non distended, soft Back: Normal ROM Skin: General appearance color normal MS/ Extremity: Moves all extremities, no obvious deformities appreciated, no edema noted to the lower extremities Neuro: Awake and alert, normal gait Psych: Behavior is normal, Mood is normal, Patient is cooperative and pleasant Vital Signs: 11:23 BP 151 / 84; Pulse 58; Resp 18 S; Temp 97.6(TE); Pulse Ox 99% on R/A; Weight 87.54 kg ca1 (R); Height 5 ft. 6 in. (167.64 cm) (R); Pain 6/10; 11:23 Body Mass Index 31.15 (87.54 kg, 167.64 cm) ca1 MDM: 13:22 Patient medically screened. [facility] 14:57 Data reviewed: vital signs, nurses notes. Counseling: I had a detailed discussion with [facility] the patient and/or guardian regarding: the historical points, exam findings, and any diagnostic results supporting the discharge/admit diagnosis, lab results, radiology results, the need for outpatient follow up, to return to the emergency department if symptoms worsen or persist or if there are any questions or concerns that arise at home. ED course: Patient is alert and non toxic in appearance in the ED. No signs of resp distress. Patient advised to follow up with pcp and otherwise given strict return precautions. patient understood and agrees with the plan of care. . 02/23 13:22 Order name: Chest Single View XRAY; Complete Time: 13:53 [facility] 02/23 14:44 Order name: COVID-19/FLU A+B; Complete Time: 14:48 EDMS Administered Medications: No medications were administered Disposition: 17:34 Co-signature as Attending Physician, Aly Frias MD. rn Disposition: 02/23/21 14:58 Discharged to Home. Impression: Acute upper respiratory infection, unspecified. - Condition is Stable. - Discharge Instructions: Upper Respiratory Infection, Adult. - Prescriptions for Albuterol Sulfate 90 mcg/actuation - inhale 1-2 puff by INHALATION route every 4-6 hours; 1 Inhaler. - Medication Reconciliation Form, Thank You Letter, Antibiotic Education, Prescription Opioid Use, Work release form form. - Follow up: John Stuart MD; When: 2 - 3 days; Reason: Recheck today's complaints, Continuance of care, Re-evaluation by your physician. Signatures: Dispatcher [employer] EDMS Jude Wall PA PA jmm Williams, Irene, RN RN iw Aly Frias MD MD rn Acob, JOHNATHAN Alarcon RN ca1 Corrections: (The following items were deleted from the chart) 14:01 13:22 CORONAVIRUS+ ordered. [facility] EDAL 15:09 14:58 02/23/2021 14:58 Discharged to Home. Impression: Acute upper respiratory iw infection, unspecified. Condition is Stable. Forms are Medication Reconciliation Form, Thank You Letter, Antibiotic Education, Prescription Opioid Use. Follow up: John Stuart; When: 2 - 3 days; Reason: Recheck today's complaints, Continuance of care, Re-evaluation by your physician. xuan
--- NOTE | 2021-02-23 14:58 | ER ---
Nurse's Notes [facility] Name: Dinora Brooks Age: 70 yrs Sex: Female : 1950 Arrival Date: 02/23/2021 Time: 10:48 Bed 28 Private MD: John Stuart Diagnosis: Acute upper respiratory infection, unspecified Presentation: 02/23 11:23 Chief complaint: Patient states: last 3 days, cough, congestion and headache. Every ca1 time I cough, my ribs hurt all across under the breast. Denies fever. Coronavirus screen: Client denies travel out of the [place] in the last 14 days. congestion, cough unrelated to allergies, headache, Client presents with at least one sign or symptom that may indicate coronavirus-19. Standard/surgical mask placed on the client. Provider contacted for isolation considerations. Ebola Screen: Patient negative for fever greater than or equal to 101.5 degrees Fahrenheit, and additional compatible Ebola Virus Disease symptoms Patient denies exposure to infectious person. Patient denies travel to an Ebola-affected area in the 21 days before illness onset. No symptoms or risks identified at this time. Initial Sepsis Screen: Does the patient meet any 2 criteria? No. Patient's initial sepsis screen is negative. Does the patient have a suspected source of infection? No. Patient's initial sepsis screen is negative. Risk Assessment: Do you want to hurt yourself or someone else? Patient reports no desire to harm self or others. Onset of symptoms was February 23, 2021. 11:23 Method Of Arrival: Ambulatory ca1 11:23 Acuity: JOSE 3 ca1 Historical: - Allergies: 11:26 NKDA; ca1 - PMHx: 11:26 Diabetes - NIDDM; Hypertension; Lupus; ca1 - PSHx: 11:26 Hysterectomy; ca1 - Immunization history:: Client reports receiving the 1st dose of the Covid vaccine, Pneumococcal vaccine is not up to date, Flu vaccine is up to date. - Social history:: Smoking status: Patient/guardian denies using tobacco, the patient reports quitting approximately 4 years ago. Screenin:33 Abuse screen: Denies threats or abuse. Denies injuries from another. Nutritional iw screening: No deficits noted. Tuberculosis screening: No symptoms or risk factors identified. Fall Risk None identified. Assessment: 13:32 General: Appears in no apparent distress. Behavior is calm, cooperative. Pain: iw Complains of pain in diaphragm, mid-sternal area, right breast and left breast Pain does not radiate. Pain: Pain began 2-3 days ago. Neuro: Level of Consciousness is awake, alert, obeys commands, Oriented to person, place, time, situation, Moves all extremities. Cardiovascular: Patient's skin is warm and dry. Respiratory: Reports cough that is productive, Respiratory effort is even, unlabored, Respiratory pattern is regular, symmetrical. Derm: Skin is pink, warm \T\ dry. normal. Musculoskeletal: Range of motion: intact in all extremities. Vital Signs: 11:23 BP 151 / 84; Pulse 58; Resp 18 S; Temp 97.6(TE); Pulse Ox 99% on R/A; Weight 87.54 kg ca1 (R); Height 5 ft. 6 in. (167.64 cm) (R); Pain 6/10; 11:23 Body Mass Index 31.15 (87.54 kg, 167.64 cm) ca1 ED Course: 10:48 Patient arrived in ED. am2 10:48 John Stuart MD is Private Physician. am2 11:25 Triage completed. ca1 11:26 Arm band placed on right wrist. ca1 13:08 Jude Wall PA is PHCP. jmm 13:08 Aly Frias MD is Attending Physician. jmm 13:14 Saloni Phillip, JOHNATHAN is Primary Nurse. iw 13:35 Flu Sent. mt 13:43 Chest Single View XRAY In Process Unspecified. EDMS 14:57 John Stuart MD is Referral Physician. m 15:09 Pulse ox on. iw 15:09 Patient has correct armband on for positive identification. iw 15:09 No provider procedures requiring assistance completed. Patient did not have IV access iw during this emergency room visit. Patient maintains SpO2 saturation greater than 95% on room air. Administered Medications: No medications were administered Outcome: 14:58 Discharge ordered by . m 15:09 Discharged to home ambulatory. iw 15:09 Condition: good 15:09 Discharge instructions given to patient, Instructed on discharge instructions, follow up and referral plans. medication usage, Demonstrated understanding of instructions, follow-up care, medications, Prescriptions given X 1. 15:09 Patient left the ED. iw Signatures: Dispatcher [employer] EDMS Jude Wall PA PA jmm Williams, Irene, RN RN Milvia Manning Moriah ar Agnes Rojas RN RN ca1 Corrections: (The following items were deleted from the chart) 14: 13:35 CORONAVIRUS+ drawn and sent. ar GABRIELOH
[2021-02-23 16:15] VITALS: BP 151/84; TEMP 97.6; O2SAT 99
== END 2021-02-23 15:09 | disposition home or self-care (01) ==
LOC: ER 10:32
DX: J06.9 Acute upper respiratory infection, unspecified (principal); I10 Essential (primary) hypertension; Z20.822 Contact with and (suspected) exposure to COVID-19; Z87.891 Personal history of nicotine dependence
CPT/HCPCS: 0240U; 71045; 99284

== ENCOUNTER 2022-02-27 15:53 | Inpatient (IN) | payer OTHER ==
--- OUTSIDE RECORDS SUMMARY | 2022-02-27 15:57 | XMS REPORT | Continuity of Care Document ---
:1950 Author Organization [facility] t Address [address] [place] [address] Dr. Almanza [address] [place] [id number] Care Team Providers Name Role Phone Ajibade_O_AH Attending Clinician Unavailable Ige-Odunuga_J_AH Attending Clinician Unavailable Ajibade_O_AH Admitting Clinician Unavailable Ige-Odunuga_J_AH Admitting Clinician Unavailable Payers Payer Name Policy Type Policy Number Effective Date Expiration Date S man[place] [facility] [place] [facility] [id number] 2019 [employer] 00:00:00 (MEDICARE REPLACEMENT/ADVANT AGE - HMO) Problems This patient has no known problems. Allergies, Adverse Reactions, Alerts This patient has no known allergies or adverse reactions. Medications This patient has no known medications. Procedures This patient has no known procedures. Encounters Start End Encounter Admission Attending Care Care Encounter Source Date/Time Date/Time Type Type Clinicians Facility Department ID 2020-07-15 2020-07-15 Outpatient Ajibade_O_A VFP VFP [id number] [facility] 04:39:00 04:39:00 H [id number] Family Practic e 2020-07-15 2020-07-15 Outpatient Ajibade_O_A VFP VFP [id number] [facility] 04:39:00 04:39:00 H [id number] Family Practic e 2020-07-15 2020-07-15 Outpatient Ajibade_O_A VFP VFP [phone] [facility] 04:39:00 04:39:00 H [id number] Family Practic e 2020-02-16 2020-02-16 Outpatient Ige-Odunuga VFP VFP [phone] [facility] 06:14:00 06:14:00 _J_AH [id number] Family Practic e Results This patient has no known results.
--- NOTE | 2022-02-27 17:15 | RAD REPORT ---
EXAM DESCRIPTION: RAD - Chest Single View - 02/27/2022 5:08 pm CLINICAL HISTORY: Chest pain;SOB Chest pain. COMPARISON: Chest Pa And Lat (2 Views) dated 12/06/2021; Chest Single View dated 02/23/2021; Chest Pa A nd Lat (2 Views) dated 11/25/2018; Chest Pa And Lat (2 Views) dated 09/26/2017 FINDINGS: Portable technique limits examination quality. Mild interstitial pulmonary edema. The heart is mildly to moderately enlarged. No displaced fractures . IMPRESSION: Mild CHF.
[2022-02-27 17:29] LABS: Absolute Lymphocytes (CBC) 1.6 K/uL (0.7-4.9); Hematocrit 41.4 % (36.0-45.0); MPV 9.1 fL (7.6-11.3); RBC Red Blood Cell Count 5.19 M/uL (3.86-4.86)
[2022-02-27] MEDS ORDERED: FUROSEMIDE 40 MG/4 ML VIAL ONE (17:36)
[2022-02-27 17:38] LABS: Albumin 3.5 g/dL (3.4-5.0); Bilirubin Direct 0.1 mg/dL (0-0.2); Bilirubin Total 0.4 mg/dL (0.2-1.0); Magnesium 1.8 mg/dL (1.8-2.4); Potassium 3.9 mmol/L (3.5-5.1); Troponin High Sensitivity 25.6 pg/mL (<58.9)
[2022-02-27 17:45] LABS: Protime INR 1.1
--- NOTE | 2022-02-27 18:41 | ER ---
Nurse's Notes [facility] Name: Dinora Brooks Age: 71 yrs Sex: Female : 1950 Arrival Date: 02/27/2022 Time: 15:57 Bed 8 Private MD: John Stuart Diagnosis: Acute systolic (congestive) heart failure-new onset;Dyspnea Presentation: 02/27 16:14 Chief complaint: Patient states: "I have been having chest pain, fatigue and shortness jd3 of breath. I have been told I have hypertrophic cardiomyopathy.". Coronavirus screen: At this time, the client does not indicate any symptoms associated with coronavirus-19. Ebola Screen: No symptoms or risks identified at this time. Initial Sepsis Screen: Does the patient meet any 2 criteria? No. Patient's initial sepsis screen is negative. Does the patient have a suspected source of infection? No. Patient's initial sepsis screen is negative. Risk Assessment: Do you want to hurt yourself or someone else? Patient reports no desire to harm self or others. Onset of symptoms was February 25, 2022. 16:14 Method Of Arrival: Ambulatory jd3 16:14 Acuity: JOSE 2 jd3 Historical: - Allergies: 16:16 NKDA; jd3 - PMHx: 16:16 Diabetes - NIDDM; Hypertension; Lupus; jd3 - PSHx: 16:16 Total abdominal hysterectomy; left ankle; jd3 - Immunization history:: Adult Immunizations up to date, Client reports receiving the 2nd dose of the Covid vaccine, Flu vaccine is up to date. - Social history:: Smoking status: Patient/guardian denies using tobacco, the patient reports quitting approximately 5 years ago. Screenin:56 Abuse screen: Denies threats or abuse. Denies injuries from another. Nutritional ww screening: No deficits noted. Tuberculosis screening: No symptoms or risk factors identified. Fall Risk None identified. Assessment: 17:54 General: Appears in no apparent distress. Behavior is calm, cooperative. Pain: ww Complains of pain in chest Pain does not radiate. Pain began 2-3 days ago. Neuro: Level of Consciousness is awake, alert, obeys commands, Oriented to person, place, time, situation, Moves all extremities. Speech is normal. Cardiovascular: Capillary refill < 3 seconds Patient's skin is warm and dry. Rhythm is sinus bradycardia Chest pain is described as diffuse, is located in left chest wall. Respiratory: Airway is patent Respiratory effort is even, unlabored, Respiratory pattern is regular, symmetrical. GI: No signs and/or symptoms were reported involving the gastrointestinal system. : No signs and/or symptoms were reported regarding the genitourinary system. Derm: Skin is intact, is healthy with good turgor. 19:46 General: Appears in no apparent distress. comfortable, Behavior is calm, cooperative, al4 patient states "I feel so much better. My Shortness of breath has gone away and I feel like I can walk again." Patient denies c/p, but states her left arm is still sore. . Pain: Complains of pain in anterior aspect of left shoulder and left bicep. Neuro: Level of Consciousness is awake, alert, obeys commands, Oriented to person, place, time, situation, Speech is normal. Cardiovascular: Capillary refill < 3 seconds Patient's skin is warm and dry. Rhythm is sinus bradycardia Chest pain is denied. Respiratory: Airway is patent Respiratory effort is unlabored, Respiratory pattern is regular. Musculoskeletal: Circulation, motion, and sensation intact. 19:48 Reassessment: Patient is able to independently transfer to bedside commode and back to al4 bed. 20:33 Reassessment: Patient and/or family updated on plan of care and expected duration. Pain al4 level reassessed. Patient is alert, oriented x 3, equal unlabored respirations, skin warm/dry/pink. Vital Signs: 16:17 BP 111 / 86; Pulse 42; Resp 19 S; Temp 97.9(TE); Pulse Ox 97% on R/A; Weight 90.26 kg jd3 (R); Height 5 ft. 6 in. (167.64 cm) (R); Pain 8/10; 17:57 BP 145 / 70; Pulse 48; Resp 24; Pulse Ox 97% on R/A; ww 19:00 BP 143 / 67; Pulse 48; Resp 27 S; Pulse Ox 99% ; jg9 19:49 BP 159 / 74; Pulse 56; Resp 26 S; Pulse Ox 98% on R/A; al4 20:30 BP 163 / 76; Pulse 66; Resp 24; Pulse Ox 100% on R/A; al4 16:17 Body Mass Index 32.12 (90.26 kg, 167.64 cm) jd3 ED Course: 15:57 Patient arrived in ED. mr 15:57 John Stuart MD is Private Physician. mr 16:16 Triage completed. jd3 16:18 Hesham Trinh, MARC is PHCP. pm1 16:18 Aly Frias MD is Attending Physician. pm1 16:18 Arm band placed on. EKG completed in triage. Results shown to MD. jd3 17:10 XRAY Chest (1 view) In Process Unspecified. EDMS 17:54 Korina Sosa, RN is Primary Nurse. ww 17:56 Patient has correct armband on for positive identification. Placed in gown. Bed in low ww position. Call light in reach. Side rails up X2. Adult w/ patient. bus monitor on. Pulse ox on. NIBP on. 17:56 Inserted saline lock: 20 gauge in right forearm, using aseptic technique. Blood ww collected. Patient maintains SpO2 saturation greater than 95% on room air. 18:40 John Stuart MD is Hospitalizing Provider. pm1 19:49 No provider procedures requiring assistance completed. Patient admitted, IV remains in al4 place. Administered Medications: 17:36 Drug: Lasix (furosemide) 40 mg Route: IVP; Site: right antecubital; jg9 Output: 19:16 Urine: 900ml (Voided); Total: 900ml. jg9 20:33 Urine: 850ml (Voided); Total: 1750ml. al4 Outcome: 18:40 Decision to Hospitalize by Provider. pm1 19:49 Admitted to ER Hold. Please see [facility] for further documentation. al4 19:49 Condition: stable 19:49 Instructed on the need for admit, Demonstrated understanding of instructions. 20:45 Admitted to Med/surg room 404, Report called to JOHNATHAN Hi al4 21:14 Patient left the ED. al4 Signatures: Dispatcher [employer] EDTN GaneshCydney mr ZiggyHesham, MARC BOOT REPAIRER pm1 Fredy Blanchard RN RN jd3 Alexys Montemayor al4 Lesly Briones RN RN jg9 Korina Sosa RN RN ww Corrections: (The following items were deleted from the chart) 16:27 16:14 Acuity: JOSE 3 jd3 jd3
--- NOTE | 2022-02-27 18:41 | EDPHYS ---
Physician Documentation [facility] Name: Dinora Brooks Age: 71 yrs Sex: Female : 1950 Arrival Date: 02/27/2022 Time: 15:57 Bed 8 Private MD: John Stuart ED Physician Aly Frias HPI: 02/27 16:45 This 71 yrs old Black Female presents to ER via Ambulatory with complaints of Chest pm1 Pain, Shortness Of Breath. 16:45 The patient or guardian reports chest pain that is located primarily in the anterior pm1 aspect of left upper chest. Onset: 2 day(s) ago. The pain radiates to the left shoulder. Associated signs and symptoms: Pertinent positives: shortness of breath, Pertinent negatives: abdominal pain, nausea, vomiting. The chest pain is described as sharp. Duration: The patient or guardian reports a single episode, that is still ongoing. Modifying factors: the symptoms are aggravated by shortness of breath with walking. Severity of pain: in the emergency department the pain is unchanged. The patient has not experienced similar symptoms in the past. The patient has not recently seen a physician, the patient's primary care provider is Dr. Stuart, [facility]. 16:45 Patient reports dyspnea with exertion less than 10 feet. pm1 Historical: - Allergies: 16:16 NKDA; jd3 - PMHx: 16:16 Diabetes - NIDDM; Hypertension; Lupus; jd3 - PSHx: 16:16 Total abdominal hysterectomy; left ankle; jd3 - Immunization history:: Adult Immunizations up to date, Client reports receiving the 2nd dose of the Covid vaccine, Flu vaccine is up to date. - Social history:: Smoking status: Patient/guardian denies using tobacco, the patient reports quitting approximately 5 years ago. ROS: 16:45 Constitutional: Negative for fever, chills, and weight loss. pm1 16:45 Abdomen/GI: Negative for abdominal pain, nausea, vomiting, diarrhea, and constipation, Back: Negative for injury and pain, MS/Extremity: Negative for injury and deformity, Skin: Negative for injury, rash, and discoloration, Neuro: Negative for headache, weakness, numbness, tingling, and seizure. 16:45 Cardiovascular: Positive for chest pain, Negative for edema, orthopnea, palpitations. 16:45 Respiratory: Positive for shortness of breath, on exertion. 16:45 All other systems are negative. Exam: 16:45 Constitutional: This is a well developed, well nourished patient who is awake, alert, pm1 and in no acute distress. Head/Face: Normocephalic, atraumatic. 16:45 Back: No spinal tenderness. No costovertebral tenderness. Full range of motion. Skin: Warm, dry with normal turgor. Normal color with no rashes, no lesions, and no evidence of cellulitis. MS/ Extremity: Pulses equal, no cyanosis. Neurovascular intact. Full, normal range of motion. 16:45 Chest/axilla: Inspection: normal, Palpation: crepitus, is not appreciated, tenderness, that is moderate, of the anterior aspect of left upper chest, that totally reproduces the patient's complaints. 16:45 Cardiovascular: Exam negative for acute changes, Rate: normal, Rhythm: regular, Pulses: no pulse deficits are appreciated, Edema: is not appreciated. 16:45 Respiratory: Exam negative for acute changes, respiratory distress, shortness of breath, Breath sounds: are clear throughout. 16:45 Abdomen/GI: Exam negative for acute changes, Inspection: abdomen appears normal, Palpation: abdomen is soft and non-tender, in all quadrants. 16:45 Neuro: Exam negative for acute changes, Orientation: is normal, Mentation: is normal, Motor: is normal, moves all fours. Vital Signs: 16:17 BP 111 / 86; Pulse 42; Resp 19 S; Temp 97.9(TE); Pulse Ox 97% on R/A; Weight 90.26 kg jd3 (R); Height 5 ft. 6 in. (167.64 cm) (R); Pain 8/10; 17:57 BP 145 / 70; Pulse 48; Resp 24; Pulse Ox 97% on R/A; ww 19:00 BP 143 / 67; Pulse 48; Resp 27 S; Pulse Ox 99% ; jg9 19:49 BP 159 / 74; Pulse 56; Resp 26 S; Pulse Ox 98% on R/A; al4 20:30 BP 163 / 76; Pulse 66; Resp 24; Pulse Ox 100% on R/A; al4 16:17 Body Mass Index 32.12 (90.26 kg, 167.64 cm) jd3 MDM: 16:25 Patient medically screened. pm1 16:51 Data reviewed: vital signs. Data interpreted: Pulse oximetry: on room air is 97 %. pm1 Interpretation: normal. 18:39 Physician consultation: John Stuart MD was called at 18:39, was contacted at 18:39, pm1 regarding admission, patient's condition, and will see patient. 02/27 16:24 Order name: Basic Metabolic Panel; Complete Time: 17:44 pm1 02/27 16:24 Order name: CBC with Diff; Complete Time: 17:44 pm1 02/27 16:24 Order name: LFT's; Complete Time: 17:44 pm1 02/27 16:24 Order name: Magnesium; Complete Time: 17:44 pm1 02/27 16:24 Order name: NT PRO-BNP; Complete Time: 17:44 pm1 02/27 16:24 Order name: PT-INR; Complete Time: 17:50 pm1 02/27 16:24 Order name: Troponin HS; Complete Time: 17:44 pm1 02/27 16:24 Order name: XRAY Chest (1 view); Complete Time: 17:20 pm1 02/27 16:24 Order name: EKG; Complete Time: 16:26 pm1 02/27 16:24 Order name: Cardiac monitoring; Complete Time: 17:06 pm1 02/27 16:24 Order name: EKG - Nurse/Tech; Complete Time: 17:06 pm1 02/27 17:51 Order name: COVID-19/FLU A+B (Document "Date of Onset" if Symptomatic); Complete Time: pm1 19:10 02/27 18:49 Order name: CONS Physician Consult [facility] 02/27 16:24 Order name: IV Saline Lock; Complete Time: 17:06 pm1 02/27 16:24 Order name: Labs collected and sent; Complete Time: 17:06 pm1 02/27 16:24 Order name: O2 Per Protocol; Complete Time: 17:06 pm02/27 16:24 Order name: O2 Sat Monitoring; Complete Time: 17:06 pm1 Administered Medications: 17:36 Drug: Lasix (furosemide) 40 mg Route: IVP; Site: right antecubital; jg9 Disposition Summary: 02/27/22 18:40 Hospitalization Ordered Hospitalization Status: Inpatient Admission pm1 Provider: John Stuart pm1 Condition: Stable pm1 Problem: new pm1 Symptoms: have improved pm1 Bed/Room Type: Standard pm1 Location: Telemetry/MedSurg (Inpatient)(02/27/22 20:14) mw Room Assignment: 407(02/27/22 20:14) mw Diagnosis - Acute systolic (congestive) heart failure - new onset pm1 - Dyspnea pm1 Forms: - Medication Reconciliation Form pm1 - SBAR form pm1 Addendum: 03/03/2022 21:29 Co-signature as Attending Physician, Aly Frias MD. r n Signatures: Dispatcher [employer] EDMS Manjula [place] RN RN mw Woody, Diana RN JOHNATHAN dw Aly Frias MD MD rn Marinas, Patrick, HR CLERK HR CLERK pm1 Fredy Blanchard RN RN jd3 Lesly Briones RN RN jg9 Corrections: (The following items were deleted from the chart) 02/27 19:14 18:40 Telemetry/MedSurg (Inpatient) pm1 dw 19:14 18:40 pm1 dw 20:14 19:14 [facility] ER HOLD dw 20:14 19:14 ERHOLD- dw
[2022-02-27 19:08] LABS: SARS-COV-2 RT PCR NEGATIVE (NEGATIVE)
[2022-02-27] MEDS ORDERED: D50W 25 GM/50 ML SYRINGE IV PRN (19:24)
[2022-02-27] MEDS ORDERED: GLUCAGON 1 MG/VIAL IM PRN (19:24)
[2022-02-27] MEDS ORDERED: IPRATROPIUM BROM 0.5MG/2.5ML NEB PRN (19:24)
[2022-02-27] MEDS ORDERED: ALBUTEROL 2.5 MG/3 ML NEB SOL NEB PRN (19:24)
[2022-02-27] MEDS ORDERED: IPRATROPIUM BROM 0.5MG/2.5ML ONE (20:48)
[2022-02-27] MEDS ORDERED: ALBUTEROL 2.5 MG/3 ML NEB SOL ONE (20:48)
[2022-02-27] MEDS: INSULIN -REGULAR HUMAN 50 UNIT/0.5 ML ML SQ SCH (21:00)
[2022-02-28 03:55] LABS: Absolute Lymphocytes (CBC) 1.9 K/uL (0.7-4.9); Hematocrit 41.4 % (36.0-45.0); MPV 8.8 fL (7.6-11.3); RBC Red Blood Cell Count 5.23 M/uL (3.86-4.86)
[2022-02-28 04:08] LABS: Potassium 3.4 mmol/L (3.5-5.1)
[2022-02-28] MEDS: INSULIN -REGULAR HUMAN 50 UNIT/0.5 ML ML SQ SCH ×4 (07:30→20:43)
[2022-02-28] MEDS ORDERED: POTASSIUM CL SA 10 MEQ TAB PO ONE (08:00)
[2022-02-28] MEDS: METOPROLOL TAR 50 MG TAB PO SCH (09:00)
[2022-02-28] MEDS ORDERED: DILTIAZEM HCL 300 MG SR CAP PO SCH (09:00)
[2022-02-28] MEDS: DILTIAZEM HCL 180 MG SR CAP PO SCH (09:57)
[2022-02-28] MEDS: DILTIAZEM HCL 120 MG SR CAP PO SCH (09:58)
[2022-02-28] MEDS: FUROSEMIDE 20 MG/ 2ML VIAL IV SCH ×2 (10:01→17:27)
--- NOTE | 2022-02-28 10:03 | CON ---
Date of Consultation: 02/28/2022 Reason For Consultation: Congestive heart failure. History Of Present Illness: Ms. Brooks 71-year-old black woman, known to us from the past. Dr. Francesca lake did a heart catheterization in 2018. 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 She has been taking Cardizem and metoprolol, Lasix, inha lers, and insulin. Comes in with chest pain over the left arm area with some shortness of breath, wa s found to have mild congestive heart failure by x-ray. BNP was 386, glucose was 165. Otherwise, he r troponin was negative. She had quit seeing us in the office because we do not take her insurance. Past Medical History: Includes lupus, diabetes, hypertension, hypertrophic cardiomyopathy. Allergies: NONE. Review of Systems: Negative. Social History: Negative. Family History: Negative. Medications: Listed earlier. Physical Examination: General: This morning when I saw her, she was in no acute distress. She was pain free. Vital Signs: Stable, afebrile. HEENT: Negative. Neck: Supple with no bruit. Chest: Clear. Cardiac: Revealed a regular rhythm and rate with S4 gallops. No murmurs or rubs. Abdomen: Benign. Extremities: Revealed no clubbing, cyanosis, or edema. Diagnostic Data: As stated earlier. EKG showed LVH. Impression And Plan: Congestive heart failure secondary to diastolic dysfunction from hypertrophic c ardiomyopathy. We can continue her diltiazem, increase her metoprolol dose, and send her home on Las ix. Continue inhalers. Continue on insulin. Echocardiogram is pending. She will need to have an o utpatient Lexiscan. Her other problems including diabetes, hypertension, and lupus are stable at thi s point. I am comfortable with her going home whenever it is okay with Dr. Stuart and we will see h er in the office as an outpatient soon. MILAGRO/MARIA LUISA Voice ID: [id number] Report ID: [id number]
[2022-02-28] MEDS ORDERED: IPRATROPIUM BROM 0.5MG/2.5ML NEB PRN (19:00)
[2022-02-28] MEDS ORDERED: ALBUTEROL 2.5 MG/3 ML NEB SOL NEB PRN (19:00)
--- NOTE | 2022-02-28 20:30 | HP ---
Date of Admission: 02/27/2022 Chief Complaint: Shortness of breath. History Of Present Illness: The patient states over the past few days increasing dyspnea with a mini mal amount of effort. States she has not needed diuretics in the recent past, but number of years ag o required some. She was seen in the office about a month ago for knee pain, injected with steroids, which she has had a marked improvement. Past Medical History: The patient has a long history of arthritic problems, some coronary artery dis ease to her knowledge, no prior CHF, has been seen by Cardiology in the past, however, due to her ins urance issues, she has not been seen lately. Family History: Noncontributory. Social History: Nonsmoker. Nondrinker. Physical Examination: General: The patient is a slightly obese, moderately dyspneic, elderly female. Vital Signs: Stable vital signs. Head and Neck: Normocephalic. Pupils equal and reactive to light and accommodation. Fundi negative . Trachea midline. Thyroid not palpable. ENT negative. Chest: High-pitched rhonchi and rales bilaterally. Adequate air entry and movement. No accessory m uscles of breathing. Cardiovascular: PMI at the midclavicular line. Heart sounds normal. Peripheral pulses are present and equal bilaterally. Abdomen: No organomegaly. Bowel sounds present. Extremities: +2 pitting edema. Rectal and Pelvic: Deferred. Impression: Congestive heart failure; acute-onset coronary artery disease; hypertension, controlled. Plan: The patient will be diuresed with IV Lasix. Cardiology will be consulted. After response to the diuresis and echo obtained, determination will be made with what doses of diuretic to be discharged on. HR/MODL Voice ID: [id number]
[2022-02-28 21:07] VITALS: O2SAT 97
[2022-03-01 05:03] LABS: Hematocrit 44.4 % (36.0-45.0); Lymphocytes % 42.3 % (15.3-44.8); RBC Red Blood Cell Count 5.57 M/uL (3.86-4.86)
[2022-03-01 05:12] LABS: Magnesium 1.8 mg/dL (1.8-2.4); Potassium 4.1 mmol/L (3.5-5.1)
[2022-03-01 05:26] VITALS: BMI 31.6
--- NOTE | 2022-03-01 07:29 | ECHO ---
HEIGHT: 5 ft 6 in WEIGHT: 196 lb 6 oz DATE OF STUDY: 02/28/[address]: Hesham Trinh NP 2-DIMENSIONAL: YES M.MODE: YES DOPPLER: YES COLOR FLOW: YES TDS: NO PORTABLE: YES DEFINITY: NO BUBBLE STUDY: NO DIAGNOSIS: NEW ONSET CONGESTIVE HEART FAILURE CARDIAC HISTORY: CATHERIZATION: NO SURGERY: NO PROSTHETIC VALVE: NO PACEMAKER: NO MEASUREMENTS (cm) DIASTOLIC (NORMALS) SYSTOLIC (NORMALS) IVSd 1.1 (0.6-1.2) LA Diam 3.4 (1.9-4.0) LVEF 72% LVIDd 3.9 (3.5-5.7) LVIDs 2.3 (2.0-3.5) %FS 41% LVPWd 1.2 (0.6-1.2) Ao Diam 2.5 (2.0-3.7) 2 DIMENSIONAL ASSESSMENT: RIGHT ATRIUM: NORMAL LEFT ATRIUM: NORMAL RIGHT VENTRICLE: NORMAL LEFT VENTRICLE: NORMAL TRICUSPID VALVE: NORMAL MITRAL VALVE: NORMAL PULMONIC VALVE: NORMAL AORTIC VALVE: NORMAL PERICARDIAL EFFUSION: NONE AORTIC ROOT: NORMAL LEFT VENTRICULAR WALL MOTION: NORMAL DOPPLER/COLOR FLOW: NORMAL COMMENTS: NORMAL 2D ECHOCARDIOGRAM WITH DOPPLER. NO WALL MOTION ABNORMALITY. NO EFFUSION. TECHNOLOGIST: Cem KRAFT
[2022-03-01] MEDS: INSULIN -REGULAR HUMAN 50 UNIT/0.5 ML ML SQ SCH ×3 (07:30→16:19)
[2022-03-01] MEDS ORDERED: MAGNESIUM SULFATE 1 gm IVPB 1 GM/100 ML BAG IV ONE (09:00)
[2022-03-01] MEDS: METOPROLOL TAR 50 MG TAB PO SCH (09:36)
[2022-03-01] MEDS: FUROSEMIDE 20 MG/ 2ML VIAL IV SCH ×2 (09:36→16:19)
--- NOTE | 2022-03-01 11:04 | EKG ---
Test Date: 2022-02-27 Test Time: 16:26:44 Partner Management Consultant: TRA MEASUREMENT RESULTS: Intervals: Rate: 42 WV: 158 QRSD: 126 QT: 478 QTc: 399 [place]: P: 76 WV: 158 QRS: 2 T: 107 INTERPRETIVE STATEMENTS: Marked sinus bradycardia Right bundle branch block T wave abnormality, consider lateral ischemia Abnormal ECG Compared to ECG 01/09/2020 09:28:09 Right bundle-branch block now present T-wave abnormality now present Possible ischemia now present Sinus rhythm no longer present Incomplete right bundle-branch block no longer present ST (T wave) deviation no longer present Electronically Signed On 03-01-22 10:58:04 CDT by Diteer Finch
[2022-03-01] MEDS: DILTIAZEM HCL 180 MG SR CAP PO SCH (11:16)
[2022-03-01] MEDS: DILTIAZEM HCL 120 MG SR CAP PO SCH (11:17)
[2022-03-01 13:22] VITALS: BP 114/49; TEMP 97.1
--- NOTE | 2022-03-02 03:27 | HP ---
Date of Admission: 02/27/2022 Subjective: The patient states she feels considerably better and she could walk, that her without being short of breath. In addition, to her medicine has been on the 40 mg Lasix. She could therefore be discharged with the usual medication with the addition of Lasix. Follow up with me in 1 week and database reporting consultant in 2 weeks. HR/MODL Voice ID: [id number]
--- NOTE | 2022-03-02 09:32 | PN ---
Date of Progress Note: 03/01/2022 Ms. Brooks was admitted to Dr. Stuart's service with atypical chest pain, new onset congestive he art failure. She is known to have hypertrophic obstructive cardiomyopathy with LVH without any gradi ent. She is on beta-blockers and Cardizem. She is symptom free, has improved. I think we need to c ontinue her present regimen including when she goes home and low-dose Lasix. Her echocardiogram actu ally was normal here without any evidence of significant left ventricular hypertrophy. Case was disc ussed with Dr. Stuart. We will see her in the office soon. MILAGRO/MARIA LUISA Voice ID: [id number] Report ID: [id number]
== END 2022-03-01 17:52 | disposition home or self-care (01) | DRG 291 ==
LOC: ER 15:53 → ERHOLD 18:42 → 4TH 21:08 → 3RD-ICU 02-28 19:00
PROVIDERS: ADMIT Family Medicine; ATTEND Family Medicine
DX: I11.0 Hypertensive heart disease with heart failure (principal); I50.31 Acute diastolic (congestive) heart failure; E11.9 Type 2 diabetes mellitus without complications; M32.9 Systemic lupus erythematosus, unspecified; Z20.822 Contact with and (suspected) exposure to COVID-19
CPT/HCPCS: 0240U; 36415; 71045; 80048; 80076; 82947; 83735; 83880; 84484; 85025; 85610; 93005; 93306; 94640; 96374; 99285; J1815; J1940; J3475

== ENCOUNTER 2024-07-30 09:55 | Observation (INO) | payer OTHER ==
[2024-07-30] MEDS ORDERED: ASPIRIN 81 MG CHEWABLE TABLET ONE (10:19)
--- NOTE | 2024-07-30 10:38 | RAD REPORT ---
EXAM DESCRIPTION: RAD - Chest Single View - 07/30/2024 10:23 am CLINICAL HISTORY: CHEST PAIN Chest pain. COMPARISON: Chest Pa And Lat (2 Views) dated 08/15/2023; Chest Single View dated 02/27/2022; Chest Pa And Lat (2 Views) dated 12/06/2021; Chest Single View dated 02/23/2021 FINDINGS: Portable technique limits examination quality. The lungs are grossly clear. The heart is mildly prominent in size. No displaced fractures. IMPRESSION: No acute intrathoracic process suspected.
[2024-07-30 10:51] LABS: Absolute Eosinophils 0.2 K/uL (0-0.5); Absolute Lymphocytes (CBC) 1.6 K/uL (0.7-4.9); Absolute Monocytes 0.6 K/uL (0.1-1.3); Basophils % 0.8 % (0-1.3); Hematocrit 43.7 % (36.0-45.0); Hemoglobin 14.1 g/dL (12.0-15.0); Lymphocytes % 37.2 % (15.3-44.8); MCH 26.5 pg (27.0-35.0); MCHC 32.1 g/dL (32.0-36.0); MCV 82.4 fL (80-100); MPV 9.4 fL (7.6-11.3); Monocytes % 12.6 % (3.3-12.3); Neutrophils % 45.4 % (41.7-73.7); Nucleated Red Blood Cells % 0.1 % (0-0); Platelets 190 thou/uL (152-406); RBC Red Blood Cell Count 5.31 M/uL (3.86-4.86); Red Cell Distribution Width 14.9 % (12.1-15.2)
[2024-07-30 11:01] LABS: PT Prothrombin Time 13.3 SECONDS (9.4-12.5); Protime INR 1.19
[2024-07-30 11:11] LABS: ALT/SGPT 25 U/L (13-56); AST/SGOT 22 U/L (15-37); Albumin 3.5 g/dL (3.4-5.0); Albumin/Globulin Ratio 0.8 (1.1-1.8); Alkaline Phosphatase 86 U/L (45-117); BUN Blood Urea Nitrogen 16 mg/dL (7-18); Bicarbonate 28 mEq/L (21-32); Bilirubin Direct < 0.2 mg/dL (0-0.2); Bilirubin Indirect, Calculated 0.2 mg/dL (0.2-0.8); Bilirubin Total 0.4 mg/dL (0.2-1.0); Globulin 4.4 g/dL (2.3-3.5); Glomerular Filtration Rate 56 ml/min (=/>90); Glucose Level 256 mg/dL (74-106); Lipase 19 U/L (13-75); Magnesium 1.7 mg/dL (1.6-2.4); NT PRO-BNP 358 pg/mL (<125); Protein, Total 7.9 g/dL (6.4-8.2); Sodium Level 138 mEq/L (136-145); Troponin High Sensitivity 14.3 pg/mL (<58.9)
--- NOTE | 2024-07-30 11:27 | RAD REPORT ---
EXAM DESCRIPTION: US - Extrem Venous W Compress Butch - 07/30/2024 11:07 am CLINICAL HISTORY: Pain;Swelling Bilateral leg edema and swelling. COMPARISON: Extremity Venous Uni Ltd dated 11/15/2016 TECHNIQUE: Real-time sonographic interrogation of the left and right lower extremity deep venous sys tems was performed. FINDINGS: Normal compressibility, flow augmentation, phasic flow and spontaneous flow is identified in both the left and right lower extremity deep venous systems. IMPRESSION: No sonographic evidence of left or right lower extremity deep venous thrombosis.
--- NOTE | 2024-07-30 11:27 | EDPHYS ---
Physician Documentation [facility] Name: Dinora Brooks Age: 74 yrs Sex: Female : 1950 Arrival Date: 07/30/2024 Time: 09:55 Bed 5 Private MD: ED Physician Sal Olson HPI: 07/30 11:18 This 74 yrs old Black Female presents to ER via Ambulatory with complaints of Chest brandy Pain - x3days. 11:18 This 74 yrs old Black Female presents to ER via Ambulatory with complaints of Chest brandy Pain - x3days. 11:18 The patient or guardian reports chest pain that is located primarily in the substernal brandy area, anterior chest wall, bilaterally. Onset: 3 day(s) ago. The pain does not radiate. Associated signs and symptoms: The patient has no apparent associated signs or symptoms. The chest pain is described as a heaviness, a pressure. Modifying factors: The symptoms are alleviated by nothing. the symptoms are aggravated by nothing. Severity of pain: At its worst the pain was mild moderate in the emergency department the pain has improved moderately. The patient has experienced similar episodes in the past, several times. Historical: - Allergies: 10:10 NKDA; ll1 - PMHx: 10:10 Diabetes - NIDDM; Hypertension; Lupus; ll1 - PSHx: 10:10 Left ankle; Total abdominal hysterectomy; ll1 - Immunization history:: Adult Immunizations up to date. - Infectious Disease History:: Denies. - Social history:: Smoking status: Patient/guardian denies using tobacco, the patient reports quitting approximately 8 years ago. ROS: 11:21 Constitutional: Negative for fever, chills, and weight loss, Eyes: Negative for injury, brandy pain, redness, and discharge, ENT: Negative for injury, pain, and discharge, Neck: Negative for injury, pain, and swelling, Respiratory: Negative for shortness of breath, cough, wheezing, and pleuritic chest pain, Abdomen/GI: Negative for abdominal pain, nausea, vomiting, diarrhea, and constipation, Back: Negative for injury and pain, : Negative for injury, bleeding, discharge, and swelling, MS/Extremity: Negative for injury and deformity, Skin: Negative for injury, rash, and discoloration, Neuro: Negative for headache, weakness, numbness, tingling, and seizure, Psych: Negative for depression, anxiety, suicide ideation, homicidal ideation, and hallucinations, Allergy/Immunology: Negative for hives, rash, and allergies, Endocrine: Negative for neck swelling, polydipsia, polyuria, polyphagia, and marked weight changes, Hematologic/Lymphatic: Negative for swollen nodes, abnormal bleeding, and unusual bruising, 11:21 Cardiovascular: Positive for chest pain, Exam: 11:21 Constitutional: This is a well developed, well nourished patient who is awake, alert, brandy and in no acute distress. Head/Face: Normocephalic, atraumatic. Eyes: Pupils equal round and reactive to light, extra-ocular motions intact. Lids and lashes normal. Conjunctiva and sclera are non-icteric and not injected. Cornea within normal limits. Periorbital areas with no swelling, redness, or edema. ENT: Nares patent. No nasal discharge, no septal abnormalities noted. Tympanic membranes are normal and external auditory canals are clear. Oropharynx with no redness, swelling, or masses, exudates, or evidence of obstruction, uvula midline. Mucous membranes moist. Neck: Trachea midline, no thyromegaly or masses palpated, and no cervical lymphadenopathy. Supple, full range of motion without nuchal rigidity, or vertebral point tenderness. No Meningismus. Chest/axilla: Normal chest wall appearance and motion. Nontender with no deformity. No lesions are appreciated. Cardiovascular: Regular rate and rhythm with a normal S1 and S2. No gallops, murmurs, or rubs. Normal PMI, no JVD. No pulse deficits. Respiratory: Lungs have equal breath sounds bilaterally, clear to auscultation and percussion. No rales, rhonchi or wheezes noted. No increased work of breathing, no retractions or nasal flaring. Abdomen/GI: Soft, non-tender, with normal bowel sounds. No distension or tympany. No guarding or rebound. No evidence of tenderness throughout. Back: No spinal tenderness. No costovertebral tenderness. Full range of motion. Female : Normal external genitalia. Skin: Warm, dry with normal turgor. Normal color with no rashes, no lesions, and no evidence of cellulitis. Neuro: Awake and alert, GCS 15, oriented to person, place, time, and situation. Cranial nerves II-XII grossly intact. Motor strength 5/5 in all extremities. Sensory grossly intact. Cerebellar exam normal. Normal gait. Psych: Awake, alert, with orientation to person, place and time. Behavior, mood, and affect are within normal limits. 11:21 Musculoskeletal/extremity: ROM: full active range of motion, full passive range of motion, Circulation is intact in all extremities. Sensation intact. Compartment Syndrome exam of affected extremity: is normal. Weight bearing: able to fully bear weight, DVT Exam: negative Homans' sign noted on exam, no appreciated bluish discoloration, no erythema, no increased warmth, pain, swelling, tenderness, of the right leg, Vital Signs: 10:10 BP 167 / 83; Pulse 51; Resp 15; Temp 98; Pulse Ox 99% ; Weight 83.46 kg; bp 12:19 BP 176 / 76; Pulse 74; Resp 16; Temp 97.3; Pulse Ox 97% ; bp 13:39 BP 175 / 82; Pulse 49; Resp 16; Pulse Ox 96% ; bp MDM: 10:06 Patient medically screened. brandy 11:22 Differential diagnosis: abnormal EKG, acute myocardial infarction, anxiety, coronary brandy artery disease chest wall pain, Cholelithiasis costochondritis, esophagitis, pancreatitis, peptic ulcer disease, pericarditis, pneumonia, pulmonary embolus, stable angina, thoracic aortic disection, unstable angina. HEART Score: History: Moderately Suspicious (1), ECG: Non specific repolarization disturbance / LBTB / PM (1), Age: > or = 65 years (2), Risk Factors: > or = 3 Risk factors for atherosclerotic disease (2), [Hypertension] [DM] [+ Family HX] Troponin: < or = 1 x Normal Limit (0). The patient was given aspirin in the Emergency Department. Data reviewed: vital signs, nurses notes, lab test result(s), EKG, radiologic studies, plain films. Consideration of Admission/Observation Patient was admitted/placed on observation. Escalation of care including admission/observation considered. I considered the following discharge prescriptions or medication management in the emergency department Medications were administered in the Emergency Department. See MAR. Independent interpretation of the following test(s) in the Emergency Department EKG: See my EKG interpretation above. Test considered but Not performed: CT: NO CT PE. Historians other than the Patient: PT WELL INFORMED. Counseling: I had a detailed discussion with the patient and/or guardian regarding the historical points, exam findings, and any diagnostic results supporting the discharge/admit diagnosis, the presence of at least one elevated blood pressure reading (>120/80) during this emergency department visit, lab results, radiology results, the need for further work-up and treatment in the hospital. 07/30 10:08 Order name: Basic Metabolic Panel; Complete Time: 11:16 [facility] 07/30 10:08 Order name: CBC with Diff; Complete Time: :16 [facility] 07/30 10:08 Order name: LFT's; Complete Time: 11:16 [facility] 07/30 10:08 Order name: Magnesium; Complete Time: :16 [facility] 07/30 10:08 Order name: NT PRO-BNP; Complete Time: :16 [facility] 07/30 10:08 Order name: PT-INR; Complete Time: :16 [facility] 07/30 10:08 Order name: Troponin HS; Complete Time: 11:16 [facility] 07/30 10:08 Order name: Lipase; Complete Time: :16 [facility] 07/30 10:08 Order name: XRAY Chest (1 view); Complete Time: 11:16 [facility] 07/30 10:24 Order name: US Extremity Venous W Compression Butch; Complete Time: 11:37 [facility] 07/30 10:08 Order name: EKG; Complete Time: : [facility] 07/30 10:08 Order name: Cardiac monitoring; Complete Time: 10:15 [facility] 07/30 10:08 Order name: EKG - Nurse/Tech; Complete Time: 10:15 [facility] 07/30 10:08 Order name: IV Saline Lock; Complete Time: 10:48 [facility] 07/30 10:08 Order name: Labs collected and sent; Complete Time: 10:48 [facility] 07/30 10:08 Order name: O2 Per Protocol; Complete Time: 10:15 [facility] 07/30 10:08 Order name: O2 Sat Monitoring; Complete Time: 10:15 [facility] Administered Medications: 10:26 Drug: Aspirin PO Chewable Tablet 324 mg PO once; 81 mg tablets x 4 Route: PO; bp 11:56 Drug: Enoxaparin Sub-Q 1 mg/kg Sub-Q once Route: Sub-Q; Site: right lower abdomen; bp 13:41 Follow up: Response: No adverse reaction bp 11:56 Drug: Famotidine IVP 20 mg IVP once; dilute with 10 mL 0.9% NaCl; give over 2 minutes bp Route: IVP; Site: right antecubital; 13:41 Follow up: Response: No adverse reaction bp Disposition Summary: 07/30/24 11:26 Hospitalization Ordered Notes: Hospitalization Status: Observation brandy Provider: Marck Frias cha Location: Telemetry/MedSurg (observation) brandy Condition: Fair brandy Problem: new brandy Symptoms: have improved brandy Bed/Room Type: Standard brandy Room Assignment: 209(07/30/24 12:12) bd Diagnosis - Chest pain, unspecified brandy - Edema, unspecified brandy Forms: - Medication Reconciliation Form brandy - SBAR form brandy - Leadership Thank You Letter brandy Signatures: Dispatcher [employer] EDMS Cadence Arredondo Corey, MD MD cha Attema, Lee, ADMINISTRATOR-C ADMINISTRATOR-Cla1 Matt Winters, RN RN bp Thony Drew RN RN ll1 Corrections: (The following items were deleted from the chart) 10: 10:09 BASIC METABOLIC PANEL+C.LAB.BRZ ordered. EDMS EDMS 10: 10:09 CBC+H.LAB.BRZ ordered. EDMS EDMS 10: 10:09 HEPATIC FUNCTION+C.LAB.BRZ ordered. EDMS EDMS 10: 10:09 MAGNESIUM+C.LAB.BRZ ordered. EDMS EDMS 10: 10:09 PROBNP+C.LAB.BRZ ordered. EDMS EDMS 10: 10:09 PROTIME (+INR)+COAG.LAB.BRZ ordered. EDMS EDMS 10: 10:09 Troponin High Sensitivity+C.LAB.BRZ ordered. EDMS EDMS 10:09 10:09 LIPASE+C.LAB.BRZ ordered. EDMS EDMS 12:12 11:26 brandy bd
--- NOTE | 2024-07-30 11:27 | ER ---
Nurse's Notes [facility] Name: Dinora Brooks Age: 74 yrs Sex: Female : 1950 Arrival Date: 07/30/2024 Time: 09:55 Bed 5 Private MD: Diagnosis: Chest pain, unspecified;Edema, unspecified Presentation: 07/30 10:10 Chief complaint: Patient states: CHEST PAIN x3 DAYS. Coronavirus screen: At this time, bp the client does not indicate any symptoms associated with coronavirus-19. Ebola Screen: No symptoms or risks identified at this time. Initial Sepsis Screen: Does the patient meet any 2 criteria? No. Patient's initial sepsis screen is negative. Does the patient have a suspected source of infection? No. Patient's initial sepsis screen is negative. Risk Assessment: Do you want to hurt yourself or someone else? Patient reports no desire to harm self or others. Onset of symptoms is unknown. 10:10 Method Of Arrival: Ambulatory bp 10:10 Acuity: JOSE 3 bp Triage Assessment: 10:10 General: Appears in no apparent distress. Behavior is calm, cooperative, appropriate bp for age. Pain: Complains of pain in chest. EENT: No deficits noted. Neuro: No deficits noted. Cardiovascular: Reports chest pain. Respiratory: No deficits noted. GI: No signs and/or symptoms were reported involving the gastrointestinal system. : No signs and/or symptoms were reported regarding the genitourinary system. Derm: No deficits noted. Musculoskeletal: Swelling present in right leg. Historical: - Allergies: 10:10 NKDA; ll1 - PMHx: 10:10 Diabetes - NIDDM; Hypertension; Lupus; ll1 - PSHx: 10:10 Left ankle; Total abdominal hysterectomy; ll1 - Immunization history:: Adult Immunizations up to date. - Infectious Disease History:: Denies. - Social history:: Smoking status: Patient/guardian denies using tobacco, the patient reports quitting approximately 8 years ago. Screenin:10 [facility] ED Fall Risk Assessment (Adult) History of falling in the last 3 months, bp including since admission No falls in past 3 months (0 pts) Confusion or Disorientation No (0 pts) Intoxicated or Sedated No (0 pts) Impaired Gait No (0 pts) Mobility Assist Device Used No (0 pt) Altered Elimination No (0 pt) Score/Fall Risk Level 0 - 2 = Low Risk Oriented to surroundings. Abuse screen: Denies threats or abuse. Denies injuries from another. Nutritional screening: No deficits noted. Tuberculosis screening: No symptoms or risk factors identified. Assessment: 10:10 General: SEE TRIAGE NOTE. bp 12:30 Reassessment: REPORT FAXED TO RM 209. bp 13:40 Reassessment: Patient appears in no apparent distress at this time. Patient is alert, bp oriented x 3, equal unlabored respirations, skin warm/dry/pink. Vital Signs: 10:10 BP 167 / 83; Pulse 51; Resp 15; Temp 98; Pulse Ox 99% ; Weight 83.46 kg; bp 12:19 BP 176 / 76; Pulse 74; Resp 16; Temp 97.3; Pulse Ox 97% ; bp 13:39 BP 175 / 82; Pulse 49; Resp 16; Pulse Ox 96% ; bp ED Course: 09:59 Patient arrived in ED. ra3 10:06 Sal Olson MD is Attending Physician. brandy 10:09 Arm band placed on Patient placed in an exam room, on a stretcher. EKG completed in ll1 triage. Results shown to MD. 10:10 Patient has correct armband on for positive identification. Client placed on continuous bp cardiac and pulse oximetry monitoring. NIBP monitoring applied. learning manager on. Pulse ox on. NIBP on. 10:10 Patient maintains SpO2 saturation greater than 95% on room air. bp 10:12 Matt Winters, RN is Primary Nurse. bp 10:24 XRAY Chest (1 view) In Process Unspecified. EDMS 10:27 Triage completed. bp 10:30 Inserted saline lock: 20 gauge in right antecubital area, using aseptic technique. bp Blood collected. Flushed with 10 mL NS. 10:52 US Extremity Venous W Compression Butch In Process Unspecified. EDMS 11:25 Marck Frias MD is Hospitalizing Provider. brandy 12:54 1254 CM met with Ms Baer the bedside in the ED exam room. Patient identified by ane name and . Demographic sheet confirmed. Patient states he lives alone in a first floor apartment. She reports that prior to admission, she performs ADLs independently using a walker on occasion if she is experiencing right leg pain. No MPOA in place, but wishes to complete one today. NO HH, home oxygen, no other DME in the household, and not other medical services at this time. Her preferred discharge plan is to return home and states she has a friend that can transport her home. CM team will continue to follow and coordinate care. 1305 MPOA signed and completed. 19:10 Signed MPOA completed and scanned into EMR in [employer]. ane Administered Medications: 10:26 Drug: Aspirin PO Chewable Tablet 324 mg PO once; 81 mg tablets x 4 Route: PO; bp 11:56 Drug: Enoxaparin Sub-Q 1 mg/kg Sub-Q once Route: Sub-Q; Site: right lower abdomen; bp 13:41 Follow up: Response: No adverse reaction bp 11:56 Drug: Famotidine IVP 20 mg IVP once; dilute with 10 mL 0.9% NaCl; give over 2 minutes bp Route: IVP; Site: right antecubital; 13:41 Follow up: Response: No adverse reaction bp Medication: 10:10 VIS not applicable for this client. bp Outcome: 11:26 Decision to Hospitalize by Provider. brandy 14:02 Patient left the ED. bp Signatures: Dispatcher [employer] EDMS Sal Olson MD MD cha Peltier, Brian, RN RN bp Thony Drew RN RN 1 [facility] Krystle Frank, RN RN nehemiah Corrections: (The following items were deleted from the chart) 11:45 10:10 Pulse 51bpm; Resp 15bpm; Pulse Ox 99%; Temp 98F; bp ll1 11:57 10:10 Pulse 51bpm; Resp 15bpm; Pulse Ox 99%; Temp 98F; 83.46 kg; ll1 bp 13:41 12:30 Reassessment: REPORT FAXED TO 419 bp bp
[2024-07-30] MEDS ORDERED: ENOXAPARIN 80 MG/0.8 ML SQ ONE (11:48)
[2024-07-30] MEDS ORDERED: FAMOTIDINE 20 MG/2 ML VIAL IV ONE (11:48)
--- NOTE | 2024-07-30 12:19 | P.HP ---
Certification for Inpatient Patient admitted to: Observation With expected LOS: <2 Midnights Patient will require the following post-hospital care: None Practitioner: I am a practitioner with admitting privileges, knowledge of patient current condition, hospital course, and medical plan of care. Services: Services provided to patient in accordance with Admission requirements found in Title 42 Section 412.3 of the Code of Federal Regulations Patient History Date of Service: 07/30/24 Reason for admission: Chest pain History of Present Illness: 74-year-old female with history of hypertrophic cardiomyopathy, insulin- dependent diabetes, hypertension, lupus presents to the emerged department chief complaint of chest pain. She reports that for the last 3 days she has been having intermittent pressure-like chest pain rating to her left arm occasionally with shortness of breath associated. Last heart catheterization was in 2018 here when she was diagnosed with hypertrophic cardiomyopathy, she reports had a stress test last year with her primary lapper Dr. Thomson which was reported to be normal by her. Patient was evaluated here in the emergency department initial high sensitive troponin normal, EKG without STEMI criteria, bilateral lower extremity venous Dopplers negative for DVT. ED provider wishes to be patient under observation for ACS rule out. Allergies No Known Allergies Allergy (Verified 10/06/16 16:10) Home Medications: Cholecalciferol (Vitamin D3) [Vitamin D3] 10 mcg PO DAILY 02/27/22 Diltiazem Cd [Cardizem Cd*] 300 mg PO DAILY 02/27/22 Esomeprazole Mag Trihydrate [Nexium] 20 mg PO DAILY 02/27/22 Ferrous Fumarate/Vit Bcomp&C [Super B-Complex Caplet] 1 tab PO DAILY 02/27/22 Insulin Degludec [Tresiba Flextouch U-200] 60 units SQ DAILY 02/27/22 Metoprolol Tartrate [Lopressor] 50 mg PO DAILY 02/27/22 Naproxen [Naprosyn] 500 mg PO Q12HP PRN 02/27/22 - Past Medical/Surgical History Diabetic: Yes -: Insulin-dependent diabetes -: hypertension -: lupus -: Hypertrophic cardiomyopathy -: hysterectomy -: left ankle surgery Psychosocial/ Personal History: Lives at home alone - Family History Father Notes: pt adopted, Mother -: Heart disease, Hypertension, Diabetes - Social History Alcohol use: No CD- Drugs: No Caffeine use: Yes Place of Residence: Home Review of Systems 10-point ROS is otherwise unremarkable Cardiovascular: Chest Pain Physical Examination - Physical Exam General: Alert, In no apparent distress, Oriented x3 HEENT: Atraumatic, PERRLA, EOMI Neck: Supple, 2+ carotid pulse no bruit, No LAD Respiratory: Clear to auscultation bilaterally, Normal air movement Cardiovascular: Regular rate/rhythm, Normal S1 S2 Gastrointestinal: Normal bowel sounds, No tenderness Musculoskeletal: No tenderness Integumentary: No rashes Neurological: Normal gait, Normal speech, Normal strength at 5/5 x4 extr, Normal tone, Normal affect Lymphatics: No axilla or inguinal lymphadenopathy - Studies Laboratory Data (last 24 hrs) 07/30/24 07/30/24 07/30/24 10:40 10:40 10:40 WBC 4.40 Hgb 14.1 Hct 43.7 Plt Count 190 PT 13.3 H INR 1.19 Sodium 138 Potassium 4.0 BUN 16 Creatinine 1.05 H Glucose 256 H Magnesium 1.7 Total Bilirubin 0.4 AST 22 ALT 25 Alkaline Phosphatase 86 Lipase 19 Assessment and Plan - Plan Assessment: Chest pain rule out ACS History of hypertrophic cardiomyopathy Diabetes mellitus type 2insulin-dependent with hyperglycemia Hypertension Plan: Chest pain rule out ACS History of hypertrophic cardiomyopathy Will trend troponins monitor on telemetry and obtain cardiology consult Last heart cath 2017 which demonstrated hypertrophic cardiomyopathy Last tress test around 1 year ago reportedly normal by patient Also some lower extremity edema will diurese while in hospital with IV Lasix Diabetes mellitus type 2insulin-dependent with hyperglycemia Takes Tresiba 65 units at bedtime, unclear if she took it last night or not Resume long-acting insulin at slightly reduced dose, ACHS Accu-Chek and sliding scale insulin in addition Hypertension Metoprolol and Cardizem continued DVT PPX: Lovenox Code status: Full Discharge Plan: Home Plan to discharge in: 24 Hours - Advance Directives Does patient have a Living Will: No Does patient have a Durable POA for Healthcare: No - Code Status/Comfort Care Code Status Assessed: Yes (Full code) Critical Care: No Time Spent Managing Pts Care (In Minutes): 54
[2024-07-30] MEDS ORDERED: ONDANSETRON 4 MG/2 ML VIAL IV PRN (14:01)
[2024-07-30 14:08] VITALS: BMI 29.9
[2024-07-30 14:44] VITALS: O2SAT 96
[2024-07-30] MEDS: INSULIN REGULAR (HUMAN) 100 UNIT/ML SQ SCH (16:30)
[2024-07-30] MEDS: FUROSEMIDE 40 MG/4 ML VIAL IV SCH (17:41)
[2024-07-30] MEDS: METOPROLOL XL 50 MG TAB PO ONE (17:41)
[2024-07-30] MEDS: DILTIAZEM HCL 300 MG SR CAP PO ONE (17:45)
[2024-07-30] MEDS: DILTIAZEM HCL 120 MG SR CAP PO ONE (18:00)
--- NOTE | 2024-07-30 18:14 | P.CNS ---
Date of Consult: 07/30/24 Chief Complaint: Chest pain History of Present Illness: Patient with PMH of HCM, HTN presented with chest pain, left shoulder pain that has been going on for the last few days, report PASCUAL and bilateral lower extremities swelling, denies palpitations, no syncope. Allergies No Known Allergies Allergy (Verified 10/06/16 16:10) Home medications list reviewed: Yes Home Medications: Cholecalciferol (Vitamin D3) [Vitamin D3] 10 mcg PO DAILY 02/27/22 Diltiazem Cd [Cardizem Cd*] 300 mg PO DAILY 02/27/22 Esomeprazole Mag Trihydrate [Nexium] 20 mg PO DAILY 02/27/22 Insulin Degludec [Tresiba Flextouch U-200] 65 units SQ DAILY 02/27/22 Metoprolol Tartrate [Lopressor] 50 mg PO DAILY 02/27/22 Albuterol Inhaler [Ventolin Inhaler] 2 puff IH Q6H PRN 07/30/24 Furosemide 1 tab PO DAILY 07/30/24 Thiamine HCl [Vitamin B-1] 1 tab PO DAILY 07/30/24 - Past Medical/Surgical History Diabetic: Yes -: Insulin-dependent diabetes -: hypertension -: lupus -: Hypertrophic cardiomyopathy -: hysterectomy -: left ankle surgery Psychosocial/ Personal History: Lives at home alone - Family History Father Notes: pt adopted, Mother Medical History: Heart disease, Hypertension, Diabetes - Social History Alcohol use: No CD- Drugs: No Caffeine use: Yes Place of Residence: Home Review of Systems 10-point ROS is otherwise unremarkable Physical Examination Temp Pulse Resp BP Pulse Ox 97.7 F 52 16 206/80 H 94 07/30/24 16:00 07/30/24 16:00 07/30/24 16:00 07/30/24 16:00 07/30/24 16:00 General: Alert, In no apparent distress HEENT: Atraumatic, PERRLA, Mucous membr. moist/pink, EOMI, Sclerae nonicteric Neck: Supple, 2+ carotid pulse no bruit, No LAD, Without JVD or thyroid abnormality Respiratory: Clear to auscultation bilaterally, Normal air movement Cardiovascular: Regular rate/rhythm, Normal S1 S2 Gastrointestinal: Normal bowel sounds, No tenderness Musculoskeletal: No tenderness Integumentary: No rashes Neurological: Normal gait, Normal speech, Normal tone, Normal affect Lymphatics: No axilla or inguinal lymphadenopathy Laboratory Data (last 24 hrs) 07/30/24 07/30/24 07/30/24 10:40 10:40 10:40 WBC 4.40 Hgb 14.1 Hct 43.7 Plt Count 190 PT 13.3 H INR 1.19 Sodium 138 Potassium 4.0 BUN 16 Creatinine 1.05 H Glucose 256 H Magnesium 1.7 Total Bilirubin 0.4 AST 22 ALT 25 Alkaline Phosphatase 86 Lipase 19 - Problems (1) Chest pain Current Visit: Yes Status: Acute Plan: atypical, reproducible on exam with negative cardiac markers and recent negative stress test. No further cardiac work up needed. (2) HOCM (hypertrophic obstructive cardiomyopathy) Current Visit: Yes Status: Acute Plan: Continue Diltazem and Toprol for HR and BP control. (3) Diastolic heart failure Current Visit: Yes Status: Acute Plan: agree with IV diuresis with Lasix 40 mg BID Continue to monitor input and output and electrolytes.
[2024-07-30] MEDS: DILTIAZEM HCL 180 MG SR CAP PO ONE (18:44)
[2024-07-30] MEDS ORDERED: HYDRALAZINE HCL 20 MG/ML VIAL IV PRN (21:01)
[2024-07-30] MEDS: lisinopriL 20 MG TAB PO SCH (22:06)
[2024-07-30] MEDS: INSULIN GLARGINE 100 UNIT/ML SQ SCH (22:14)
[2024-07-31 06:11] LABS: Absolute Eosinophils 0.2 K/uL (0-0.5); Absolute Lymphocytes (CBC) 1.9 K/uL (0.7-4.9); Absolute Monocytes 0.8 K/uL (0.1-1.3); Absolute Neutrophil 2.1 K/uL (1.8-8.0); Basophils % 0.7 % (0-1.3); Eosinophils % 3.7 % (0-4.4); Hematocrit 41.9 % (36.0-45.0); Hemoglobin 13.7 g/dL (12.0-15.0); Lymphocytes % 37.1 % (15.3-44.8); MCH 26.8 pg (27.0-35.0); MCHC 32.7 g/dL (32.0-36.0); MCV 81.9 fL (80-100); MPV 9.6 fL (7.6-11.3); Monocytes % 16.3 % (3.3-12.3); Neutrophils % 42.2 % (41.7-73.7); Nucleated Red Blood Cells % 0.1 % (0-0); Platelets 186 thou/uL (152-406); RBC Red Blood Cell Count 5.11 M/uL (3.86-4.86); Red Cell Distribution Width 14.6 % (12.1-15.2)
[2024-07-31 06:27] LABS: Anion Gap 6.6 mEq/L (5.0-15.0); Potassium 3.6 mEq/L (3.5-5.1)
[2024-07-31] MEDS: METOPROLOL XL 50 MG TAB PO SCH (06:41)
[2024-07-31 08:57] VITALS: TEMP 97.6
--- NOTE | 2024-07-31 08:58 | P.DS ---
Admission Date: 07/30/24 Discharge Date: 07/31/24 Disposition: ROUTINE DISCHARGE Discharge Condition: GOOD Reason for Admission: Chest pain Consultations: Cardiology-Dr. Pardo Brief History of Present Illness: 74-year-old female with history of hypertrophic cardiomyopathy, insulin- dependent diabetes, hypertension, lupus presents to the emerged department chief complaint of chest pain. She reports that for the last 3 days she has been having intermittent pressure-like chest pain rating to her left arm occasionally with shortness of breath associated. Last heart catheterization was in 2018 here when she was diagnosed with hypertrophic cardiomyopathy, she reports had a stress test last year with her primary electrification adviser Dr. Thomson which was reported to be normal by her. Patient was evaluated here in the emergency department initial high sensitive troponin normal, EKG without STEMI criteria, bilateral lower extremity venous Dopplers negative for DVT. ED provider wishes to be patient under observation for ACS rule out. Hospital Course: Assessment: Chest pain rule out ACS History of hypertrophic cardiomyopathy Diabetes mellitus type 2insulin-dependent with hyperglycemia Hypertension Patient was admitted to the hospital for chest pain, pedal edema. Troponins were trended and remained negative/flat, she was monitored on telemetry without any significant arrhythmia and seen by cardiology and recommends further workup as an outpatient. She was diuresed with IV Lasix during hospitalization and had significant proved in her pedal edema. She had a stress test about 1 year ago that was negative as well. Pain is reproducible with range of motion of the shoulder/arm. Patient is stable for discharge and follow-up outpatient with her electrification adviser and primary care doctor in the next 1 to 2 weeks Continue taking home medications as previously prescribed Vital Signs/Physical Exam: Temp Pulse Resp BP Pulse Ox 97.9 F 67 18 128/56 L 96 07/31/24 04:00 07/31/24 06:41 07/31/24 04:00 07/31/24 06:41 07/31/24 04:00 General: Alert, In no apparent distress, Oriented x3 HEENT: Atraumatic, PERRLA Neck: Supple Respiratory: Clear to auscultation bilaterally, Normal air movement Cardiovascular: Regular rate/rhythm, Normal S1 S2 Gastrointestinal: Normal bowel sounds, No tenderness Musculoskeletal: No tenderness Integumentary: No rashes Neurological: Normal speech Laboratory Data at Discharge: WBC 5.00 thou/uL (4.3-10.9) 07/31/24 05:52 Hgb 13.7 g/dL (12.0-15.0) 07/31/24 05:52 Hct 41.9 % (36.0-45.0) 07/31/24 05:52 Plt Count 186 thou/uL (152-406) 07/31/24 05:52 PT 13.3 SECONDS (9.4-12.5) H 07/30/24 10:40 INR 1.19 07/30/24 10:40 Sodium 140 mEq/L (136-145) 07/31/24 05:52 Potassium 3.6 mEq/L (3.5-5.1) 07/31/24 05:52 BUN 17 mg/dL (7-18) 07/31/24 05:52 Creatinine 0.90 mg/dL (0.55-1.02) 07/31/24 05:52 Glucose 93 mg/dL (74-106) 07/31/24 05:52 Magnesium 1.7 mg/dL (1.6-2.4) 07/30/24 10:40 Total Bilirubin 0.4 mg/dL (0.2-1.0) 07/30/24 10:40 AST 22 U/L (15-37) 07/30/24 10:40 ALT 25 U/L (13-56) 07/30/24 10:40 Alkaline Phosphatase 86 U/L (45-117) 07/30/24 10:40 Triglycerides 109 mg/dL (<150) 07/31/24 05:52 Cholesterol 167 mg/dL (<200) 07/31/24 05:52 HDL Cholesterol 53 mg/dL (40-60) 07/31/24 05:52 Cholesterol/HDL Ratio 3.15 07/31/24 05:52 Lipase 19 U/L (13-75) 07/30/24 10:40 Home Medications: Cholecalciferol (Vitamin D3) [Vitamin D3] 10 mcg PO DAILY 02/27/22 Diltiazem Cd [Cardizem Cd*] 300 mg PO DAILY 02/27/22 Esomeprazole Mag Trihydrate [Nexium] 20 mg PO DAILY 02/27/22 Insulin Degludec [Tresiba Flextouch U-200] 65 units SQ DAILY 02/27/22 Metoprolol Tartrate [Lopressor] 50 mg PO DAILY 02/27/22 Albuterol Inhaler [Ventolin Inhaler*] 2 puff IH Q6H PRN 07/30/24 Furosemide 1 tab PO DAILY 07/30/24 Thiamine HCl [Vitamin B-1] 1 tab PO DAILY 07/30/24 Physician Discharge Instructions: Patient was admitted to the hospital for chest pain, pedal edema. Troponins were trended and remained negative/flat, she was monitored on telemetry without any significant arrhythmia and seen by cardiology and recommends further workup as an outpatient. She was diuresed with IV Lasix during hospitalization and had significant proved in her pedal edema. She had a stress test about 1 year ago that was negative as well. Pain is reproducible with range of motion of the shoulder/arm. Patient is stable for discharge and follow-up outpatient with her electrification adviser and primary care doctor in the next 1 to 2 weeks Continue taking home medications as previously prescribed Diet: AHA Activity: Ad lianne Followup: Edgardo Pardo MD [ACTIVE - CAN ADMIT] - 1 Week John Stuart MD [Primary Care Provider] - 1-2 Weeks Time spent managing pt's care (in minutes): 32
[2024-07-31] MEDS: ENOXAPARIN 40 MG/0.4 ML SQ SCH (09:00)
[2024-07-31] MEDS: ASPIRIN EC 81 MG TAB PO SCH (09:00)
[2024-07-31] MEDS ORDERED: DILTIAZEM HCL 300 MG SR CAP PO SCH ×2 (09:00)
[2024-07-31] MEDS: DILTIAZEM HCL 120 MG SR CAP PO SCH (09:00)
[2024-07-31] MEDS: DILTIAZEM HCL 300 MG SR CAP PO SCH (09:00)
[2024-07-31] MEDS: DILTIAZEM HCL 180 MG SR CAP PO SCH (09:00)
[2024-07-31 12:34] VITALS: BP 147/78
--- NOTE | 2024-08-04 13:08 | EKG ---
Test Date: 2024-07-30 Test Time: 10:05:53 Elevator Erector Helper: NIVIA MEASUREMENT RESULTS: Intervals: Rate: 52 CT: 162 QRSD: 130 QT: 492 QTc: 457 Sterling: P: 78 CT: 162 QRS: -13 T: 119 INTERPRETIVE STATEMENTS: Sinus bradycardia Right bundle branch block T wave abnormality, consider lateral ischemia Abnormal ECG Compared to ECG 02/27/2022 16:26:44 No significant changes Electronically Signed On 08-04-24 12:52:43 CDT by Ramon Mixon
== END 2024-07-31 12:32 | disposition home or self-care (01) ==
LOC: ER 09:55 → ERHOLD 12:05 → 2ND 12:21
PROVIDERS: ADMIT Hospitalist; ATTEND Hospitalist
DX: R07.9 Chest pain, unspecified (principal); I42.1 Obstructive hypertrophic cardiomyopathy; I10 Essential (primary) hypertension; E11.8 Type 2 diabetes mellitus with unspecified complications; R60.0 Localized edema; M32.9 Systemic lupus erythematosus, unspecified; I50.32 Chronic diastolic (congestive) heart failure; Z79.4 Long term (current) use of insulin
CPT/HCPCS: 93005; 85025 ×2; 80048 ×2; 36415; 83735; 85610; 80061; 82947 ×4; 80076; 84484 ×3; 83690; 83880; 71045; 93970; 96372; 96374; 99285; J1940; G0378